=== PATIENT | female | born 1940 | race Caucasian/White ===

== ENCOUNTER → 2017-09-27 17:48 | Outpatient (CLI) | payer MEDICARE, SELFPAY ==
--- NOTE | 2017-09-27 17:57 | RAD_ITS ---
STUDY: X-RAY - THORACIC SPINE REASON FOR EXAM: Female, 77 years old. Back pain and headaches. TECHNIQUE: AP and lateral view(s) of the thoracic spine were obtained. COMPARISON: None. FINDINGS: Normal kyphosis of the thoracic spine. There is no substantial scoliosis. There is demineralization of the thoracic spine with endplate spondylosis. There is multilevel disc space narrowing of the thoracic spine. The soft tissue structures are unremarkable. RAD/Thoracic Spine 3 Views IMPRESSION: Multilevel disc space narrowing. Electronically Signed: Tico Fitzpatrick MD at 12:25 EST Tel [phone], Service support ,
--- NOTE | 2017-09-27 18:00 | RAD_ITS ---
STUDY: X-RAY - CERVICAL SPINE REASON FOR EXAM: Female, 77 years old. Headaches and neck pain. TECHNIQUE: 3 view(s) of the cervical spine were obtained. COMPARISON: None FINDINGS: Normal anterior atlantoaxial articulation. Normal odontoid process. There is straightening of the normal cervical lordosis. There is multi-level endplate spondylosis. There is multi-level degenerative disc disease with multilevel disc space narrowing. Facet joint osteoarthritis. There are atherosclerotic vascular calcifications of the carotid arteries. RAD/Cerv Spine 2 or 3 Views IMPRESSION: Multilevel spondylosis and disc space narrowing. Electronically Signed: Tico Fitzpatrick MD at 12:25 EST Tel [phone], Service support ,
== END ==
PROVIDERS: Family Provider Family Medicine Geriatric Medicine; PCP Family Medicine Geriatric Medicine; Visit Provider Family Medicine Geriatric Medicine
DX: M54.5 Low back pain (principal)
CPT/HCPCS: 72040; 72072

== ENCOUNTER → 2017-10-12 15:11 | Outpatient (CLI) | payer MEDICARE, SELFPAY ==
--- NOTE | 2017-10-12 15:17 | CT_ITS ---
STUDY: CT BRAIN WITHOUT CONTRAST REASON FOR EXAM: Female, 77 years old. HEADACHE RADIATION DOSAGE (If Supplied By Facility): CTDIvol = ( 44.99 ) mGy, DLP = ( 714.56 ) mGycm TECHNIQUE: Transaxial CT imaging of the brain was performed without administration of intravenous contrast material. COMPARISON: 10/09/2011 FINDINGS: Normal soft tissue structures. Normal calvarium. There are calcifications around the carotid artery. These are noted in the cavernous carotid arteries. There is mild cerebral atrophy with widening of the extra-axial spaces and ventricular dilatation. There are areas of decreased attenuation within the white matter tracts of the supratentorial brain, consistent with microvascular disease changes. Normal basal ganglia and thalami. Normal brainstem. There is mild cerebellar atrophy. There is no intracranial hemorrhage. There are no findings of an acute ischemic infarction. Normal visualized paranasal sinuses. CT/Brain/Head without Contrast IMPRESSION: Chronic involutional changes of the brain. There are no acute findings. Electronically Signed: Grey Lund MD at 16:15 EST , Service support ,
== END ==
PROVIDERS: Family Provider Family Medicine Geriatric Medicine; PCP Family Medicine Geriatric Medicine; Visit Provider Family Medicine Geriatric Medicine
DX: G44.009 Cluster headache syndrome, unspecified, not intractable (principal)
CPT/HCPCS: 70450

== ENCOUNTER → 2018-02-09 11:15 | Outpatient (CLI) | payer MEDICARE, SELFPAY ==
--- NOTE | 2018-02-09 11:34 | VDLE_ITS ---
Reason For Study: LEG SWELLING RIGHT LEFT GSV is normal. GSV is normal. CFV is compressible, spontaneous, phasic, CFV is compressible, spontaneous, phasic, competent and demonstrates normal competent, and demonstrates normal augmentation. augmentation. FV is compressible, spontaneous, phasic, FV is compressible, spontaneous, phasic, competent and demonstrates normal competent and demonstrates normal augmentation. augmentation. POP V is compressible, spontaneous, phasic, POP V is compressible, spontaneous, phasic, competent and demonstrates normal competent and demonstrates normal augmentation. augmentation. T/P Trunk is compressible. T/P Trunk is compressible. PTV is compressible. PTV is compressible. RT PerV is compressible. LT PerV is compressible. Procedure Exam performed in department. A preliminary report was called and/or faxed to Dr. Campuzano. Interpretation Summary Deep veins of the lower extremities are bilaterally patent and compressible segmentally. There is no evidence of deep vein thrombosis on either side. Valvular competence appears intact within the proximal deep venous systems bilaterally. The greater saphenous veins appear bilaterally patent and compressible segmentally. Ordering Physician: Tj Campuzano Performed By: Andria Roy RVT
[2018-02-09 12:13] LABS: Absolute Lymphocyte Count 0.91 X10^3/ul (0.83-4.51); Absolute Neutrophil Count 2.2 X10^3/uL (2.0-7.7); Basophil# 0.02 X10^3/uL; Basophil% 0.6 % (0-1); Eosinophil# 0.19 X10^3/uL; Eosinophils% 5.2 % (0-5); Hematocrit 36.3 % (37-47); Hemoglobin 11.6 g/dl (12.0-15.0); Lymphocyte # 0.91 X10^3/ul (4.0); Lymphocyte % 25.1 % (19-41); Mean Corpuscular Hgb 31.3 pg (27.0-32.0); Mean Corpuscular Volume 97.8 fL (81-99); Mean Platelet Vol. 9.8 fl (6.2-12.0); Monocyte# 0.34 X10^3/uL; Monocyte% 9.4 % (0-10); Neutrophil # 2.15 X10^3/uL (2.7-7.7); Neutrophil % 59.4 % (47-70); Platelet Count 180 K/mm3 (150-450); RBC Distribution Width CV 13.4 % (11.6-14.6); RBC Distribution Width SD 46.5 fl (35.1-43.9); Red Blood Count 3.71 M/mm3 (4.2-5.4); White Blood Count 3.6 K/mm3 (4.4-11.0)
[2018-02-09 12:41] LABS: POSITIVE COUNT NO; POSITIVE DIFFERENTIAL NO; POSITIVE MORPHOLOGY NO
[2018-02-09 12:48] LABS: AST(SGOT) 26 U/L (15-37); Alanine Aminotransfer ALT/SGPT 24 U/L (13-56); Albumin, Serum 3.3 g/dL (3.2-5.0); Alkaline Phosphatase 97 U/L (45-117); Anion Gap 8 (5-15); BUN 19 mg/dL (7-18); BUN/Creat Ratio 19.4 RATIO (10-20); Calcium,Total 8.6 mg/dL (8.5-10.1); Chloride 109 mmol/L (98-107); Creatinine, Serum 0.98 mg/dL (0.55-1.02); EST Glomerular Filtration Rate 58 mL/min (>60); Est Glom Filt Rate - Afr Amer 71 mL/min (>60); Globulin 3.4 g/dL (2.2-4.2); Glucose 91 mg/dL (74-106); Potassium 4.7 mmol/L (3.5-5.1); Protein, Total 6.7 g/dL (6.4-8.2); Sodium Level 144 mmol/L (136-145); Thyroid Stim Hormone (TSH) 3.61 uIU/mL (0.358-3.74); Vitamin D,25 Hydroxy 9.8 ng/mL (29.95-100.01)
== END ==
PROVIDERS: Family Provider Family Medicine Geriatric Medicine; PCP Family Medicine Geriatric Medicine; Visit Provider Family Medicine Geriatric Medicine
DX: R60.0 Localized edema (principal); E55.9 Vitamin D deficiency, unspecified; R53.83 Other fatigue
CPT/HCPCS: 36415; 80053; 82306; 84443; 85025; 93970

== ENCOUNTER → 2018-06-29 17:45 | Outpatient (CLI) | payer MEDICARE, SELFPAY ==
--- NOTE | 2018-06-29 18:05 | RAD_ITS ---
STUDY: X-RAY - PELVIS AND BILATERAL HIPS REASON FOR EXAM: Right hip pain, fall in October patellar fractures. TECHNIQUE: Radiological exam, hip, bilateral, with pelvis when performed; minimum of 5 views COMPARISON: Radiographs of the left hip 08/02/2014. FINDINGS: There are injection granulomas in the buttocks. Normal bilateral iliac wings, sacroiliac joints and visualized sacrum. There are fractures of the right obturator ring with callus formation. There are mild degenerative changes of the pubic symphysis. Normal bilateral ischial tuberosities. Normal visualized right femoral head. Normal right acetabulum. Normal right hip joint. Normal visualized left femoral head. Normal left acetabulum. Normal left hip joint. RAD/Hips B/L min 2 views w/ Pelvis IMPRESSION: Healing fractures of the right obturator ring. Mild degenerative changes of the pubic symphysis. Otherwise, unremarkable x-ray examination of the pelvis and bilateral hips. Electronically Signed: Kostas Croft MD at 10:42 EDT Tel , Service support ,
[2018-06-29 18:57] LABS: D-Dimer Quantitative (DVT/PE) 1.37 FEU/ug/m (0.27-0.49)
== END ==
PROVIDERS: Family Provider Family Medicine Geriatric Medicine; PCP Family Medicine Geriatric Medicine; Visit Provider Family Medicine Geriatric Medicine
DX: R06.02 Shortness of breath (principal); M25.559 Pain in unspecified hip; S32.9XXA Fracture of unspecified parts of lumbosacral spine and pelvis, initial encounter for closed fracture
CPT/HCPCS: 36415; 73521; 85379

== ENCOUNTER → 2018-06-30 13:53 | Outpatient (CLI) | payer MEDICARE, SELFPAY ==
--- NOTE | 2018-06-30 14:01 | VDLE_ITS ---
Reason For Study: edema RIGHT LEFT GSV is normal. GSV is normal. CFV is compressible, spontaneous, phasic, CFV is compressible, spontaneous, phasic, competent and demonstrates normal competent, and demonstrates normal augmentation. augmentation. FV is compressible, spontaneous, phasic, FV is compressible, spontaneous, phasic, competent and demonstrates normal competent and demonstrates normal augmentation. augmentation. POP V is compressible, spontaneous, phasic, POP V is compressible, spontaneous, phasic, competent and demonstrates normal competent and demonstrates normal augmentation. augmentation. T/P Trunk is compressible. T/P Trunk is compressible. PTV is compressible. PTV is compressible. RT PerV is compressible. LT PerV is compressible. Procedure Exam performed in department. The exam was diagnostic. A preliminary report was called and/or faxed to Dr. Campuzano. <> Interpretation Summary Deep veins of the lower extremities are bilaterally patent and compressible segmentally. There is no evidence of deep vein thrombosis on either side. Valvular competence appears intact within the proximal deep venous systems bilaterally. The greater saphenous veins appear bilaterally patent and compressible segmentally. Ordering Physician: Tj Campuzano Performed By: Michael Rucker RVT
== END ==
PROVIDERS: Family Provider Family Medicine Geriatric Medicine; PCP Family Medicine Geriatric Medicine; Referring Provider Family Medicine Geriatric Medicine; Visit Provider Family Medicine Geriatric Medicine
DX: R60.0 Localized edema (principal)
CPT/HCPCS: 93970

== ENCOUNTER → 2018-08-05 09:47 | Outpatient (CLI) | payer MEDICARE, SELFPAY ==
--- NOTE | 2018-08-05 09:50 | BI_ITS ---
MAMMOGRAPHY - BILATERAL SCREENING REASON FOR EXAM: Female, 77 years old. Routine annual screening examination. PERTINENT HISTORY: Personal history of breast cancer. Prior right lumpectomy with radiation therapy. TECHNIQUE: Digital bilateral breast marguerite (3D mammographic acquisition) in the CC and MLO projections. 2-D mediolateral oblique (MLO) and craniocaudad (CC) views of both breasts were obtained. CAD: Full Field Digital Mammography with Computer Added Detection was performed. COMPARISON: Comparison is made with prior study dated August 04, 2017 and February 04, 2016. FINDINGS: Breast Composition: There are scattered areas of fibroglandular density. There are no dominant masses or suspicious calcifications. Stable postoperative changes seen in the deep central portion of the right breast due to prior lumpectomy and radiation treatment. Stable bilateral secretory calcifications. No other significant abnormalities are identified. There has been no significant change since the prior study. BI/SCREENING MAMM (CAD), BILAT IMPRESSION: Stable bilateral screening mammogram. Yearly follow-up mammogram recommended. (A) ASSESSMENT CATEGORY: BIRADS Category 2: Benign. A letter regarding these results will be sent to the patient by the facility within 30 days. Approximately 10% of breast cancers are not detected by mammography. A normal mammogram should not delay biopsy of a clinically suspicious abnormality. [id number] Electronically Signed: Tico Fitzpatrick MD at 10:59 EST Tel [phone], Service support ,
== END ==
PROVIDERS: Family Provider Family Medicine Geriatric Medicine; PCP Family Medicine Geriatric Medicine; Referring Provider Internal Medicine Medical Oncology; Visit Provider Internal Medicine Medical Oncology
DX: Z12.31 Encounter for screening mammogram for malignant neoplasm of breast (principal); Z85.3 Personal history of malignant neoplasm of breast
CPT/HCPCS: 77063; 77067

== ENCOUNTER → 2018-08-10 13:17 | Outpatient (CLI) | payer MEDICARE, SELFPAY ==
[2018-08-10 15:58] LABS: Absolute Lymphocyte Count 0.79 X10^3/ul (0.83-4.51); Basophil# 0.04 X10^3/uL; Basophil% 1.2 % (0-1); Eosinophil# 0.18 X10^3/uL; Eosinophils% 5.3 % (0-5); Hematocrit 39.5 % (37-47); Hemoglobin 12.5 g/dl (12.0-15.0); Lymphocyte # 0.79 X10^3/ul (4.0); Lymphocyte % 23.2 % (19-41); Mean Corp Hgb Conc 31.6 g/gl (32-36); Mean Corpuscular Hgb 29.5 pg (27.0-32.0); Mean Corpuscular Volume 93.2 fL (81-99); Mean Platelet Vol. 10.8 fl (6.2-12.0); Monocyte# 0.37 X10^3/uL; Monocyte% 10.9 % (0-10); Neutrophil # 2.02 X10^3/uL (2.7-7.7); Neutrophil % 59.4 % (47-70); Platelet Count 167 K/mm3 (150-450); RBC Distribution Width CV 14.6 % (11.6-14.6); RBC Distribution Width SD 49.7 fl (35.1-43.9); Red Blood Count 4.24 M/mm3 (4.2-5.4); White Blood Count 3.4 K/mm3 (4.4-11.0)
[2018-08-10 16:15] LABS: POSITIVE COUNT NO; POSITIVE DIFFERENTIAL NO; POSITIVE MORPHOLOGY NO
[2018-08-10 16:18] LABS: Vitamin D,25 Hydroxy 37.6 ng/mL (29.95-100.01)
[2018-08-10 16:42] LABS: AST(SGOT) 21 U/L (15-37); Alanine Aminotransfer ALT/SGPT 19 U/L (13-56); Albumin, Serum 3.6 g/dL (3.2-5.0); Alkaline Phosphatase 76 U/L (45-117); Anion Gap 4 (5-15); BUN 26 mg/dL (7-18); BUN/Creat Ratio 23.4 RATIO (10-20); Calcium,Total 8.9 mg/dL (8.5-10.1); Chloride 109 mmol/L (98-107); Creatinine, Serum 1.11 mg/dL (0.55-1.02); EST Glomerular Filtration Rate 51 mL/min (>60); Est Glom Filt Rate - Afr Amer 61 mL/min (>60); Globulin 3.5 g/dL (2.2-4.2); Glucose 102 mg/dL (74-106); Potassium 4.8 mmol/L (3.5-5.1); Protein, Total 7.1 g/dL (6.4-8.2); Sodium Level 140 mmol/L (136-145); Thyroid Stim Hormone (TSH) 3.09 uIU/mL (0.358-3.74)
--- OUTSIDE RECORDS SUMMARY | 2018-09-26 17:14 | XMS RPT_ITS ---
:1940 Author Organization OHIP Support Name Relationship Address Phone AMSTUTZ, SUMIT Unavailable . + ., . . JAIDA RAYO Unavailable . + ., . . R Unavailable Unavailable Unavailable AMSTUTZ, SUMIT Unavailable . + ., . . JAIDA RAYO Unavailable . + ., . . R Unavailable Unavailable Unavailable AMSTUTZ, SUMIT Unavailable . + ., . . JAIDA RAYO Unavailable . + ., . . R Unavailable Unavailable Unavailable AMSTUTZ, SUMIT Unavailable . + ., . . JAIDA RAYO Unavailable . + ., . . R Unavailable Unavailable Unavailable AMSTUTZ, SUMIT Unavailable . + ., . . JAIDA RAYO Unavailable . + ., . . R Unavailable Unavailable Unavailable AMSTUTZ, SUMIT Unavailable Unavailable + R Unavailable Unavailable Unavailable AMSTUTZ, SUMIT Unavailable Unavailable + R Unavailable Unavailable Unavailable AMSTUTZ, SUMIT Unavailable [address] + [place] [address] R Unavailable Unavailable Unavailable AMSTUTZ, SUMIT Unavailable [address] + [place] [address] R Unavailable Unavailable Unavailable AMSTUTZ, SUMIT Unavailable [address] [phone]~330-2 [place] [address] R Unavailable Unavailable Unavailable AMSTUTZ, SUMIT Unavailable [address] [phone] [place] [address] R Unavailable Unavailable Unavailable AMSTUTZ, SUMIT Unavailable [address] [phone] [place] [address] R Unavailable Unavailable Unavailable AMSTUTZ, SUMIT Unavailable [address] [phone] [place] [address] R Unavailable Unavailable Unavailable AMSTUTZ, SUMIT Unavailable [address] [phone] [place] [address] R Unavailable Unavailable Unavailable Care Team Providers Name Role Phone FRANKIE MCCALL, ORACIO Rosenthal JR. Attending Unavailable MILAN HOLLIDAY, GOGO-CHI Primary Care Unavailable Milan, Gogo Chi Attending Unavailable Milan, Gogo Chi Primary Care Unavailable DossieRomana D.C. Attending Unavailable Milan, Gogo Chi Referring Unavailable DossieRomana D.C. Attending Unavailable Milan, Gogo Chi Primary Care Unavailable DossieRomana D.C. Attending Unavailable Milan, Gogo Chi Referring Unavailable DossieRomana D.C. Attending Unavailable Milan, Gogo Chi Referring Unavailable DossieRomana D.C. Attending Unavailable DossieRomana D.C. Referring Unavailable Milan, Gogo Chi Attending Unavailable Milan, Gogo Chi Primary Care Unavailable Milan, Gogo Chi Attending Unavailable Milan, Gogo Chi Referring Unavailable Milan, Gogo Chi Primary Care Unavailable Rigo Landers Attending Unavailable Rigo Landers Referring Unavailable Milan, Gogo Chi Primary Care Unavailable Rigo Landers Attending Unavailable Milan, Gogo Chi Primary Care Unavailable Rigo Landers Consulting Unavailable Milan, Gogo Chi Attending Unavailable Milan, Gogo Chi Primary Care Unavailable Milan, Gogo Chi Attending Unavailable Milan, Gogo Chi Primary Care Unavailable Milan, Gogo Chi Attending Unavailable Milan, Gogo Chi Referring Unavailable Milan, Gogo Chi Primary Care Unavailable Rigo Landers Attending Unavailable Rigo Landers Referring Unavailable Milan, Gogo Chi Primary Care Unavailable PROBLEMS PROBLEMS DATE TYPE CONDITION / CODE ATTENDING STATUS SOURCE 09/20/2018 Unknown M99.03 - Segmental Dossie, Romana Active [facility] dysfunction of Hospital lumbar region / Repository M99.03(ICD-10) 09/20/2018 Unknown M51.36 - Other Dossie, Romana Active [place] intervertebral disc [facility] Community degeneration, lumbar Hospital region / Repository M51.36(ICD-10) 09/20/2018 Unknown M99.05 - Segmental Dossie, Romana Active [place] [facility] Community dysfunction of Hospital pelvic region / Repository M99.05(ICD-10) 09/20/2018 Unknown M99.02 - Segmental Dossie, Romana Active [place] [facility] 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 Age/Sex: 78/F Location: [facility] Status: Signed Intake Vital Signs09/19/18 Body Mass Index (BMI) 24.4 09/19/18 Height 5 ft 5 in 09/19/18 Weight: 147 lb 09/19/18 Body Mass Index (BMI) 24.4 Intake Visit Reasons: back pain Chief Complaint: R sided low back pain Is patient in pain?: Yes Allergies No Known Allergies Allergy (Verified 05/22/17 13:56) Medications Atorvastatin Calcium [Lipitor] 10 mg PO QHS 01/20/17 [History Confirmed 05/22/17] Glucosam/Chondroitin/Diet Cb25 [Trepadone Capsule] 1 ea PO TID 02/09/17 [History Confirmed 05/22/17] Potassium Chloride [K-Dur] 20 meq PO BID 02/12/17 [History Confirmed 05/22/17] Docusate Sodium [Colace] 100 mg PO DAILY #20 cap 05/22/17 [Rx] Oxycodone HCl/Acetaminophen [Percocet 5/325] 1 tab PO Q6H PRN PRN #20 tab 05/22/17 [Rx] Paroxetine [Paxil] 5 mg PO DAILY 05/22/17 [History Confirmed 05/22/17] Sumatriptan Succinate 50 mg PO QHS PRN 05/22/17 [History Confirmed 05/22/17] Black Cohosh 40 mg PO DAILY 10/20/17 [History Confirmed 10/20/17] [facility] Medical History Depression (Acute) History of DVT (deep vein thrombosis) (Acute) History of fracture of right hip (Acute) Migraine (Acute) Osteopenia (Acute) Vitamin D deficiency (Acute) Family History Father Colon cancer Social History Smoking Status: Never smoker HPI back pain: Chief Complaint: R sided low back pain and hip pain Visit Number: 3 Details: MARYANNE MATAMOROS is a 78 year old F who presents with R sided low back and hip pain. She states that after her last treatment her pain was decreased for a few hours following her treatment. Today Maryanne rates her pain a 4/10 and describes it as a deep and sharp ache that is constant. Rotation of the back, bending,twisting, and prolonged sitting causes increased pain. At times the pain can radiate into the upper thigh and hip . Maryanne denies any numbness, tingling, or radiculopathy. Location: R sided low back and hip Duration: constant Aggravating or associated factors: rotation, bending, lifting, and twisting Relieving factors: chiro Pain Quality: aching, dull, cramping, sharp Exam Musc General: Yes normal posture and joint tenderness (T11,T12,L2- L5, R>L SI); no normal gait (slightly favors R leg) Thoracic/Lumbar Spine: thoracic and lumbar spine normal to inspection, straight leg raise negative bilaterally, Lasegue's sign positive, pain with thoraco- lumbar ROM, paraspinal tenderness, thoraco-lumbar ROM limited, thoraco-lumbar spasm Sacroiliac joints: bilaterally Office Procedures Chiropractic Treatments Procedures Manipulation: 3-4 regions (T11,L2,L5, RIL) Assessment AND Plan 1. DDD (degenerative disc disease), lumbar M51.36 Orders Orders: 2. Segmental and somatic dysfunction of pelvic region M99.05 Orders Orders: 3. Segmental and somatic dysfunction of thoracic region M99.02 Orders Orders: 4. Segmental and somatic dysfunction of lumbar region M99.03 Orders Orders: Plan Detail Additional Comments Continue acute treatment plan. Goals Decrease pain Improve ability to sit/stand Barriers DDD Anterolisthesis Follow Up 2 x week Coding Level of Care Code No Charge Diagnoses DDD (degenerative disc disease), lumbar M51.36 Segmental and somatic dysfunction of pelvic region M99.05 Segmental and somatic dysfunction of thoracic region M99.02 Segmental and somatic dysfunction of lumbar region M99.03 Additional Codes Procedures - Manipulation: 3-4 regions (80966) 09/19/18 1532 <Electronically signed by Romana Deshpande D.C.> Date Romana Deshpande D.C. Cosigner Signature: Date (if applicable) CC: CHIROPRACTIC REPORT Observed: 09/19/2018 Status: F Source: [place] 9:27 AM [facility] [place] [facility] [address] [place] [address] OFFICE VISIT Date of Service: 09/15/18 MR#: [id number] Acct: [id number] Name: MARYANNE MATAMOROS Chen Rep #: [id number] : 1940 Provider: Romana Deshpande D.C. Age/Sex: 78/F Location: [facility] Status: Signed Intake Vital Signs09/15/18 Height 5 ft 5 in 09/15/18 Weight: 147 lb 09/15/18 Body Mass Index (BMI) 24.4 Intake Visit Reasons: back pain Chief Complaint: R sided low back pain Is patient in pain?: Yes Allergies No Known Allergies Allergy (Verified 05/22/17 13:56) Medications Atorvastatin Calcium [Lipitor] 10 mg PO QHS 01/20/17 [History Confirmed 05/22/17] Glucosam/Chondroitin/Diet Cb25 [Trepadone Capsule] 1 ea PO TID 02/09/17 [History Confirmed 05/22/17] Potassium Chloride [K-Dur] 20 meq PO BID 02/12/17 [History Confirmed 05/22/17] Docusate Sodium [Colace] 100 mg PO DAILY #20 cap 05/22/17 [Rx] Oxycodone HCl/Acetaminophen [Percocet 5/325] 1 tab PO Q6H PRN PRN #20 tab 05/22/17 [Rx] Paroxetine [Paxil] 5 mg PO DAILY 05/22/17 [History Confirmed 05/22/17] Sumatriptan Succinate 50 mg PO QHS PRN 05/22/17 [History Confirmed 05/22/17] Black Cohosh 40 mg PO DAILY 10/20/17 [History Confirmed 10/20/17] [facility] Medical History Depression (Acute) History of DVT (deep vein thrombosis) (Acute) History of fracture of right hip (Acute) Migraine (Acute) Osteopenia (Acute) Vitamin D deficiency (Acute) Family History Father Colon cancer Social History Smoking Status: Never smoker HPI back pain : Chief Complaint: R sided low back and hip pain Visit Number: 2 Details: MARYANNE MATAMOROS is a 78 year old F who presents with R sided low back and hip pain. She states that her pain is persistent, leaving her with a deep and sharp ache banding across the R side of the low back, and into the leg. Today Maryanne rates her pain 4/10 and describes it as a deep and sore ache that become sharp shooting with movement. Rotation, walking, bending and walking up stairs causes the pain to increase. Maryanne denies any numbness or tingling. Location: R low back and hip pain Duration: constant Aggravating or associated factors: rotation, standing, walking, and going up stairs Relieving factors: unknown Pain Quality: aching, dull, cramping, sharp, radiating Exam Musc General: Yes normal posture and joint tenderness (T11,T12,L2- L5, R>L SI); no normal gait (slightly favors R leg) Thoracic/Lumbar Spine: thoracic and lumbar spine normal to inspection, straight leg raise negative bilaterally, Lasegue's sign positive, pain with thoraco- lumbar ROM, paraspinal tenderness, thoraco-lumbar ROM limited, thoraco-lumbar spasm Sacroiliac joints: bilaterally Office Procedures Chiropractic Treatments Procedures Manipulation: 3-4 regions (T11,L2,L5, RIL) Assessment AND Plan 1. DDD (degenerative disc disease), lumbar M51.36 Orders Orders: 2. Segmental and somatic dysfunction of thoracic region M99.02 Orders Orders: 3. Segmental and somatic dysfunction of pelvic region M99.05 Orders Orders: 4. Segmental and somatic dysfunction of lumbar region M99.03 Orders Orders: Plan Detail Additional Comments Begin acute treatment plan and monitor patient response. Goals Decrease pain Improve ability to sit/stand Barriers DDD Anterolisthesis Follow Up 2 x week Coding Level of Care Code No Charge Diagnoses DDD (degenerative disc disease), lumbar M51.36 Segmental and somatic dysfunction of thoracic region M99.02 Segmental and somatic dysfunction of pelvic region M99.05 Segmental and somatic dysfunction of lumbar region M99.03 Additional Codes Procedures - Manipulation: 3-4 regions (58784) 09/19/18 0927 <Electronically signed by Romana Deshpande D.C.> Date Romana Deshpande D.C. Cosigner Signature: Date (if applicable) CC: CHIROPRACTIC REPORT Observed: 09/12/2018 Status: F Source: [place] 1:13 PM [facility] [place] [facility] [place] [address] OFFICE VISIT Date of Service: 09/12/18 MR#: [id number] Acct: [id number] Name: MARYANNE MATAMOROS Rep #: [id number] : 1940 Provider: Romana Deshpande D.C. Age/Sex: 77/F Location: [facility] Status: Signed Intake Vital Signs09/12/18 Height 5 ft 5 in 09/12/18 Weight: 147 lb 09/12/18 Body Mass Index (BMI) 24.4 Intake Visit Reasons: back pain Chief Complaint: R hip and low back pain Is patient in pain?: Yes Allergies No Known Allergies Allergy (Verified 05/22/17 13:56) Medications Atorvastatin Calcium [Lipitor] 10 mg PO QHS 01/20/17 [History Confirmed 05/22/17] Glucosam/Chondroitin/Diet Cb25 [Trepadone Capsule] 1 ea PO TID 02/09/17 [History Confirmed 05/22/17] Potassium Chloride [K-Dur] 20 meq PO BID 02/12/17 [History Confirmed 05/22/17] Docusate Sodium [Colace] 100 mg PO DAILY #20 cap 05/22/17 [Rx] Oxycodone HCl/Acetaminophen [Percocet 5/325] 1 tab PO Q6H PRN PRN #20 tab 05/22/17 [Rx] Paroxetine [Paxil] 5 mg PO DAILY 05/22/17 [History Confirmed 05/22/17] Sumatriptan Succinate 50 mg PO QHS PRN 05/22/17 [History Confirmed 05/22/17] Black Cohosh 40 mg PO DAILY 10/20/17 [History Confirmed 10/20/17] [facility] Medical History Depression (Acute) History of DVT (deep vein thrombosis) (Acute) History of fracture of right hip (Acute) Migraine (Acute) Osteopenia (Acute) Vitamin D deficiency (Acute) Family History Father Colon cancer Social History Smoking Status: Never smoker HPI back pain : Chief Complaint: low back and R hip pain Visit Number: 1 Referral source: Details: MARYANNE MATAMOROS is a 77 year old F who presents with low back and R hip pain. In October of 2017, the patient fell fracturing two bones in the R hip, this did not require surgery. Maryanne states that prior to the fall her low back was painful, although did increase after the fall. Maryanne describes her low back pain as a deep and sore ache that bands across the low back. Walking, standing and sitting for a long period of time causes increased pain. The patient complains of pain still present in the R hip, at times there is pain into the R groin, and upper thigh. As of May the hip was not yet heeled. Maryanne denies any numbness, or tingling, Onset: 09/13/17 Location: R hip and low back Duration: constant Aggravating or associated factors: rising from bed, standing, walking and bending Relieving factors: unknown Pain Quality: aching, dull, cramping, sharp, radiating Exam Musc General: Yes normal posture and joint tenderness (L2-L5, R>L SI); no normal gait (slightly favors R leg) Thoracic/Lumbar Spine: thoracic and lumbar spine normal to inspection, straight leg raise negative bilaterally, Lasegue's sign positive on the right, pain with thoraco-lumbar ROM other, with rotation to the right and with lateral flexion to the right, paraspinal tenderness bilaterally in the lower lumbar, in the mid lumbar and in the upper lumbar and on the right greater than left (piriformis, glute), thoraco-lumbar ROM limited with forward flexion, with rotation to the right and with lateral flexion to the right, thoraco-lumbar spasm on the right greater than left (R piriformis) Sacroiliac joints: bilaterally Neuro General: alert, awake, oriented x3, gait normal, normal light touch, pain and propioception, moves all extremities, no focal motor deficits Ortho Test CERVICAL THORACIC Miller: Negative LUMBAR Kemps: Positive, Rig Valsalvas: Negative SLR: Negative Iliac Compression: Positive, Rig Assessment AND Plan Problems 1. Segmental and somatic dysfunction of lumbar region M99.03 2. Segmental and somatic dysfunction of thoracic region M99.02 3. Segmental and somatic dysfunction of pelvic region M99.05 4. DDD (degenerative disc disease), lumbar M51.36 Plan Reviewed previous lumbar imaging which revealed DDD and anterolisthesis of L5 on S1(degenerative). Ordered updated hip imaging as of 06/29/18 the fx was not healed. Orders Orders: Plan Detail Additional Comments Recommend acute treatment plan(confirm fx healed) of 2x/wk/3wks. Monitor patient response. Goals Decrease pain Improve ability to sit/stand Barriers DDD Anterolisthesis Follow Up 2x/wk/3wks Coding Level of Care Code Off vis,new,level 3 Diagnoses Segmental and somatic dysfunction of lumbar region M99.03 Segmental and somatic dysfunction of thoracic region M99.02 Segmental and somatic dysfunction of pelvic region M99.05 DDD (degenerative disc disease), lumbar M51.36 09/12/18 1313 <Electronically signed by Romana Deshpande D.C.> Date Romana Deshpande D.C. Cosigner Signature: Date (if applicable) CC: CBC W/DIFF, AUTOMATED Collected: 08/10/2018 Status: F Source: [place] 1:[facility] [place] [facility] [place] TYPE CODE TESTS RESULT OUT OF RANGE REFERENCE UNITS LAB L100.1000 4.4-11.0 K/mm3 Low WBC 3.4 LAB L100.1200 4.2-5.4 M/mm3 Normal RBC 4.24 LAB L100.1300 12.0-15.0 g/dl Normal HGB 12.5 LAB L100.1400 37-47 % Normal HCT 39.5 LAB L100.1500 81-99 fL Normal MCV 93.2 LAB L100.1600 27.0-32.0 pg Normal MCH 29.5 LAB L100.1700 32-36 g/gl Low MCHC 31.6 LAB L100.1810 11.6-14.6 % Normal RDW CV 14.6 LAB L100.1820 35.1-43.9 fl High RDW SD 49.7 LAB L100.1900 150-450 K/mm3 Normal PLT 167 LAB L100.2000 6.2-12.0 fl Normal MPV 10.8 LAB L100.2100 47-70 % Normal NEUT% 59.4 LAB L100.2200 19-41 % Normal LY% 23.2 LAB L100.2300 0-10 % High MONO% 10.9 LAB L100.2400 0-5 % High EO% 5.3 LAB L100.2500 0-1 % High BASO% 1.2 LAB L100.2550 0.0-0.9 % Normal IM GRAN % 0.000 Result Comment: IG% - Immature Granulocytes (promyelocytes, myelocytes and metamyelocytes) > 1% indicates that a LEFT SHIFT is Present. LAB L100.2620 2.0-7.7 X10 3/uL Normal Absolute Neut 2.0 LAB L100.2720 0.83-4.51 X10 3/ul Low Absolute Lymph 0.79 Performed By: #### L100.0100 #### [facility] [address] [place], [place], [address] VITAMIN D,25 HYDROXY Collected: 08/10/2018 Status: F Source: [place] 1:19 PM [facility] [place] TYPE CODE TESTS RESULT OUT OF RANGE REFERENCE UNITS LAB L506.1000 29.95-100.01 ng/mL Normal Vitamin D 37.6 25-OH Result Comment: Vitamin D 25(OH) Status Range Deficiency <20 ng/mL (50nmol/L) Insuffciency 20 - 30 ng/mL (50 - 75 nmol/L) Sufficiency 30 - 100 ng/mL (75 - 250 nmol/L) Toxicity >100 ng/mL (>250 nmol/L) Performed By: #### L506.1000 #### [facility] [address] [place], [place], [address] COMPREHENSIVE METABOLIC Collected: 08/10/2018 Status: F Source: [facility] 1:19 PM [facility] [place] TYPE CODE TESTS RESULT OUT OF RANGE REFERENCE UNITS LAB L501.0100 74-106 mg/dL Normal GLU 102 Result Comment: Fasting Glucose result from 100 to 125 mg/dL suggests IMPAIRED HOMEOSTASIS per A.D.A. criteria. Please note revised GLUCOSE reference range effective 2017. LAB L501.1000 7-18 mg/dL High BUN 26 LAB L501.1100 0.55-1.02 mg/dL High CREAT,SERUM 1.11 Result Comment: The validity of the calculated GFR AND GFRAA in patients over 70 years has not been determined. Clinical correlation is essential. LAB L501.1110 >60 mL/min Low EST GFR 51 Result Comment: Non- GFR Calc LAB L501.1115 >60 mL/min Normal EST GFR - AA 61 Result Comment: GFR Calc LAB L501.1300 10-20 RATIO High BUN/CRE 23.4 LAB L501.1500 6.4-8.2 g/dL T Normal PROT 7.1 LAB L501.1800 3.2-5.0 g/dL Normal ALB 3.6 LAB L501.1950 2.2-4.2 g/dL Normal GLOB 3.5 LAB L501.2000 0.9-2.4 RATIO Normal A/G 1.0 LAB L501.2200 8.5-10.1 mg/dL CA Normal 8.9 LAB L501.4100 15-37 U/L Normal AST 21 LAB L501.4305 45-117 U/L Normal ALK P 76 LAB L501.4405 13-56 U/L Normal ALT 19 LAB L501.4600 0.20-1.00 mg/dL T Normal BILI 0.40 LAB L501.5300 136-145 mmol/L NA Normal 140 LAB L501.5600 3.5-5.1 mmol/L K Normal 4.8 LAB L501.5900 98-107 mmol/L High CL 109 LAB L501.6100 21.0-32.0 mmol/L Normal CO2 27.0 LAB L501.6200 5-15 Low GAP 4 Performed By: #### L500.4050, L501.9520 #### [facility] [address] [place], [place], [id number] THYROID STIM HORMONE Collected: 08/10/2018 Status: F Source: [place] ([facility]) 1:19 PM [facility] [place] TYPE CODE TESTS RESULT OUT OF RANGE REFERENCE UNITS LAB L501.9520 0.358-3.74 uIU/mL Normal TSH 3.09 Performed By: #### L500.4050, L501.9520 #### [facility] [address] [place], [address] SCREENING MAMM (CAD), Observed: 08/05/2018 Status: F Source: [place] 9:50 AM [facility] [place] Imaging Services [address] [place] [address] SCREENING MAMM (CAD), BILAT MR#: [id number] Acct: [id number] Name: MARYANNE MATAMOROS Rep #: [id number] : 1940 F 77 From: Tico Fitzpatrick MD PCP: [place] MCCALL,Gogo Rodrigues Status: REG CLI Study: SCREENING MAMM (CAD), BILAT Date of Exam: 08/05/18 Exam# [id number] Ordering Dr: Rigo Landers MD MAMMOGRAPHY - BILATERAL SCREENING REASON FOR EXAM: Female, 77 years old. Routine annual screening examination. PERTINENT HISTORY: Personal history of breast cancer. Prior right lumpectomy with radiation therapy. TECHNIQUE: Digital bilateral breast marguerite (3D mammographic acquisition) in the CC and MLO projections. 2-D mediolateral oblique (MLO) and craniocaudad (CC) views of both breasts were obtained. CAD: Full Field Digital Mammography with Computer Added Detection was performed. COMPARISON: Comparison is made with prior study dated August 04, 2017 and February 04, 2016. FINDINGS: Breast Composition: There are scattered areas of fibroglandular density. There are no dominant masses or suspicious calcifications. Stable postoperative changes seen in the deep central portion of the right breast due to prior lumpectomy and radiation treatment. Stable bilateral secretory calcifications. No other significant abnormalities are identified. There has been no significant change since the prior study. BI/SCREENING MAMM (CAD), BILAT IMPRESSION: Stable bilateral screening mammogram. Yearly follow-up mammogram recommended. (A) ASSESSMENT CATEGORY: BIRADS Category 2: Benign. A letter regarding these results will be sent to the patient by the facility within 30 days. Approximately 10% of breast cancers are not detected by mammography. A normal mammogram should not delay biopsy of a clinically suspicious abnormality. [id number] Electronically Signed: Tico Fitzpatrick MD at 10:59 EST Tel [phone], Service support , CC: Rigo Landers MD; Gogo Yates MD Warm In Worker: Signed VENOUS DUPLEX LOWER Observed: 07/01/2018 Status: F Source: [place] EX[place]REM[place] 7:42 AM [facility] [place] [facility] Cardiovascular Services [address] [place] [id number] Venous Duplex US - Shoaib Extrem 06/30/18 1406 MR#: [id number] Acct: [id number] Name: MARYANNE MATAMOROS Rep #: [id number] : 1940 77 From: Tito Robles MD Attending Dr: [place] MCCALL,Gogo Rodrigues Status: REG CLI Ordering Dr: Gogo Yates MD Date: 06/30/18 Location: [facility] Sex: F C Admitted: Reason For Study: edema RIGHT LEFT GSV is normal. GSV is normal. CFV is compressible, spontaneous, phasic, CFV is compressible, spontaneous, phasic, competent and demonstrates normal competent, and demonstrates normal augmentation. augmentation. FV is compressible, spontaneous, phasic, FV is compressible, spontaneous, phasic, competent and demonstrates normal competent and demonstrates normal augmentation. augmentation. POP V is compressible, spontaneous, phasic, POP V is compressible, spontaneous, phasic, competent and demonstrates normal competent and demonstrates normal augmentation. augmentation. T/P Trunk is compressible. T/P Trunk is compressible. PTV is compressible. PTV is compressible. RT PerV is compressible. LT PerV is compressible. Procedure Exam performed in department. The exam was diagnostic. A preliminary report was called and/or faxed to Dr. Yates. <> Interpretation Summary Deep veins of the lower extremities are bilaterally patent and compressible segmentally. There is no evidence of deep vein thrombosis on either side. Valvular competence appears intact within the proximal deep venous systems bilaterally. The greater saphenous veins appear bilaterally patent and compressible segmentally. Ordering Physician: Gogo Yates Performed By: Michael Rukcer, RVT 07/01/18740 Date Tito Robles MD CC: Gogo Yates MD Date Dictated: 06/30/18 1406 Date Transcribed: 07/01/18740 Warm In Worker: Signed D-DIMER QUANTITATIVE Collected: 06/29/2018 Status: F Source: [place] (DVT/PE) 6:18 PM [facility] [place] CODE TESTS RESULT OUT OF RANGE REFERENCE UNITS LAB L300.8000 0.27-0.49 FEU/ug/m High alert D-DIMER 1.37 QUANT Result Comment: D-Dimer ELEVATED (>0.49): Additional studies and clinical assessments are indicated to conclude diagnosis of: Deep Vein Thrombosis (DVT) or Pulmonary Embolism (PE) CRITICAL VALUE VERIFIED. CALLED TO DR YATES 06/29/18 [facility]7 Karolina Roldan. RESULTS READ BACK BY SAME . Performed By: #### L300.8000 #### [facility] [address] [place], [address] HIPS B/L MIN 2 Observed: 06/29/2018 Status: F Source: [place] VIEWS W/ PELVIS 6:01 PM [facility] [place] [facility] Imaging Services [address] [place] [address] Hips B/L min 2 views w/ Pelvis MR#: [id number] Acct: [id number] Name: MARYANNE MATAMOROS Rep #: [id number] : 1940 F 77 From: Kostas Croft MD PCP: Gogo Yates MD, Chi Status: REG CLI Study: Hips B/L min 2 views w/ Pelvis Date of Exam: 06/29/18 Exam# [id number] Ordering Dr: Gogo Yates MD STUDY: X-RAY - PELVIS AND BILATERAL HIPS REASON FOR EXAM: Right hip pain, fall in October patellar fractures. TECHNIQUE: Radiological exam, hip, bilateral, with pelvis when performed; minimum of 5 views COMPARISON: Radiographs of the left hip 08/02/2014. FINDINGS: There are injection granulomas in the buttocks. Normal bilateral iliac wings, sacroiliac joints and visualized sacrum. There are fractures of the right obturator ring with callus formation. There are mild degenerative changes of the pubic symphysis. Normal bilateral ischial tuberosities. Normal visualized right femoral head. Normal right acetabulum. Normal right hip joint. Normal visualized left femoral head. Normal left acetabulum. Normal left hip joint. RAD/Hips B/L min 2 views w/ Pelvis IMPRESSION: Healing fractures of the right obturator ring. Mild degenerative changes of the pubic symphysis. Otherwise, unremarkable x-ray examination of the pelvis and bilateral hips. Electronically Signed: Kostas Croft MD at 10:42 EDT Tel , Service support , CC: Gogo Yates MD Warm In Worker: Signed VENOUS DUPLEX LOWER Observed: 02/09/2018 Status: F Source: [place] EXTREMITY 1:59 PM [facility] [place] [facility] Cardiovascular Services [address] [place] [address] Venous Duplex US - Shoaib Extrem 02/09/18 1134 MR#: [id number] Acct: [id number] Name: MARYANNE MATAMOROS Rep #: [id number] : 1940 77 From: Tito Robles MD Attending Dr: Milan MCCALL,Gogo Rodrigues Status: REG CLI Ordering Dr: Gogo Yates MD Date: 02/09/18 Location: CVS Sex: F C Admitted: Reason For Study: LEG SWELLING RIGHT LEFT GSV is normal. GSV is normal. CFV is compressible, spontaneous, phasic, CFV is compressible, spontaneous, phasic, competent and demonstrates normal competent, and demonstrates normal augmentation. augmentation. FV is compressible, spontaneous, phasic, FV is compressible, spontaneous, phasic, competent and demonstrates normal competent and demonstrates normal augmentation. augmentation. POP V is compressible, spontaneous, phasic, POP V is compressible, spontaneous, phasic, competent and demonstrates normal competent and demonstrates normal augmentation. augmentation. T/P Trunk is compressible. T/P Trunk is compressible. PTV is compressible. PTV is compressible. RT PerV is compressible. LT PerV is compressible. Procedure Exam performed in department. A preliminary report was called and/or faxed to Dr. Yates. Interpretation Summary Deep veins of the lower extremities are bilaterally patent and compressible segmentally. There is no evidence of deep vein thrombosis on either side. Valvular competence appears intact within the proximal deep venous systems bilaterally. The greater saphenous veins appear bilaterally patent and compressible segmentally. Ordering Physician: Gogo Yates Performed By: Andria Roy RVT 02/09/18 1358 Date Tito Robles MD CC: Gogo Yates MD Date Dictated: 02/09/18 1134 Date Transcribed: 02/09/18 1358 Warm In Worker: Signed CBC W/DIFF, AUTOMATED Collected: 02/09/2018 Status: F Source: [place] 11:16 AM [facility] [place] CODE TESTS RESULT OUT OF RANGE REFERENCE UNITS LAB L100.1000 4.4-11.0 K/mm3 Low WBC 3.6 LAB L100.1200 4.2-5.4 M/mm3 Low RBC 3.71 LAB L100.1300 12.0-15.0 g/dl Low HGB 11.6 LAB L100.1400 37-47 % Low HCT 36.3 LAB L100.1500 81-99 fL Normal MCV 97.8 LAB L100.1600 27.0-32.0 pg Normal MCH 31.3 LAB L100.1700 32-36 g/gl Normal MCHC 32.0 LAB L100.1810 11.6-14.6 % Normal RDW CV 13.4 LAB L100.1820 35.1-43.9 fl High RDW SD 46.5 LAB L100.1900 150-450 K/mm3 Normal PLT 180 LAB L100.2000 6.2-12.0 fl Normal MPV 9.8 LAB L100.2100 47-70 % Normal NEUT% 59.4 LAB L100.2200 19-41 % Normal LY% 25.1 LAB L100.2300 0-10 % Normal MONO% 9.4 LAB L100.2400 0-5 % High EO% 5.2 LAB L100.2500 0-1 % Normal BASO% 0.6 LAB L100.2550 0.0-0.9 % Normal IM GRAN % 0.300 Result Comment: IG% - Immature Granulocytes (promyelocytes, myelocytes and metamyelocytes) > 1% indicates that a LEFT SHIFT is Present. LAB L100.2620 2.0-7.7 X10 3/uL Normal Absolute Neut 2.2 LAB L100.2720 0.83-4.51 X10 3/ul Normal Absolute Lymph 0.91 Performed By: #### L100.0100 #### [place] [facility] [address] [place], [place], [id number] VITAMIN D,25 HYDROXY Collected: 02/09/2018 Status: F Source: [place] 11:16 AM [facility] [place] CODE TESTS RESULT OUT OF REFERENCE UNITS RANGE LAB L506.1000 29.95-100.01 ng/mL Low Vitamin D 9.8 25-OH Result Comment: Vitamin D 25(OH) Status Range Deficiency <20 ng/mL (50nmol/L) Insuffciency 20 - 30 ng/mL (50 - 75 nmol/L) Sufficiency 30 - 100 ng/mL (75 - 250 nmol/L) Toxicity >100 ng/mL (>250 nmol/L) Performed By: #### L506.1000 #### [facility] [address] [place], [place], [address] COMPREHENSIVE METABOLIC Collected: 02/09/2018 Status: F Source: [place] [facility] 11:16 AM [facility] [place] TYPE CODE TESTS RESULT OUT OF RANGE REFERENCE UNITS LAB L501.0100 74-106 mg/dL Normal GLU 91 Result Comment: Please note revised GLUCOSE reference range effective 2017. LAB L501.1000 7-18 mg/dL High BUN 19 LAB L501.1100 0.55-1.02 mg/dL Normal CREAT,SERUM 0.98 Result Comment: The validity of the calculated GFR AND GFRAA in patients over 70 years has not been determined. Clinical correlation is essential. LAB L501.1110 >60 mL/min Low EST GFR 58 Result Comment: Non- GFR Calc LAB L501.1115 >60 mL/min Normal EST GFR - AA 71 Result Comment: GFR Calc LAB L501.1300 10-20 RATIO Normal BUN/CRE 19.4 LAB L501.1500 6.4-8.2 g/dL T Normal PROT 6.7 LAB L501.1800 3.2-5.0 g/dL Normal ALB 3.3 LAB L501.1950 2.2-4.2 g/dL Normal GLOB 3.4 LAB L501.2000 0.9-2.4 RATIO Normal A/G 1.0 LAB L501.2200 8.5-10.1 mg/dL CA Normal 8.6 LAB L501.4100 15-37 U/L Normal AST 26 LAB L501.4305 45-117 U/L Normal ALK P 97 LAB L501.4405 13-56 U/L Normal ALT 24 LAB L501.4600 0.20-1.00 mg/dL T Normal BILI 0.30 LAB L501.5300 136-145 mmol/L NA Normal 144 LAB L501.5600 3.5-5.1 mmol/L K Normal 4.7 LAB L501.5900 98-107 mmol/L High CL 109 LAB L501.6100 21.0-32.0 mmol/L Normal CO2 27.0 LAB L501.6200 5-15 Normal GAP 8 Performed By: #### L500.4050, L501.9520 #### [facility] [address] [place] [place], [address] THYROID STIM HORMONE Collected: 02/09/2018 Status: F Source: [place] (TSH) 11:16 AM [facility] [place] TYPE CODE TESTS RESULT OUT OF RANGE REFERENCE UNITS LAB L501.9520 0.358-3.74 uIU/mL Normal TSH 3.61 Performed By: #### L500.4050, L501.9520 #### [facility] [address] [place], [address] BRAIN/HEAD WITHOUT Observed: 10/12/2017 Status: F Source: [place] CONTRAST 3:17 PM [facility] [place] [facility] Imaging Services [address] [place] [address] Brain/Head without Contrast MR#: [id number] Acct: [id number] Name: MARYANNE MATAMOROS Rep #: [id number] : 1940 F 77 From: Grey Lund MD PCP: Milan MCCALL,Gogo Rodrigues Status: REG CLI Study: Brain/Head without Contrast Date of Exam: 10/12/17 Exam# [id number] Ordering Dr: Gogo Yates MD STUDY: CT BRAIN WITHOUT CONTRAST REASON FOR EXAM: Female, 77 years old. HEADACHE RADIATION DOSAGE (If Supplied By Facility): CTDIvol = ( 44.99 ) mGy, DLP = ( 714.56 ) mGycm TECHNIQUE: Transaxial CT imaging of the brain was performed without administration of intravenous contrast material. COMPARISON: 10/09/2011 FINDINGS: Normal soft tissue structures. Normal calvarium. There are calcifications around the carotid artery. These are noted in the cavernous carotid arteries. There is mild cerebral atrophy with widening of the extra- axial spaces and ventricular dilatation. There are areas of decreased attenuation within the white matter tracts of the supratentorial brain, consistent with microvascular disease changes. Normal basal ganglia and thalami. Normal brainstem. There is mild cerebellar atrophy. There is no intracranial hemorrhage. There are no findings of an acute ischemic infarction. Normal visualized paranasal sinuses. CT/Brain/Head without Contrast IMPRESSION: Chronic involutional changes of the brain. There are no acute findings. Electronically Signed: Grey Lund MD at 16:15 EST , Service support , CC: Gogo Yates MD Warm In Worker: Signed CERV SPINE 2 OR 3 Observed: 09/27/2017 Status: F Source: [place] VIEWS 5:57 PM [facility] [place] [facility] Imaging Services [address] [place] [address] Cerv Spine 2 or 3 Views MR#: [id number] Acct: [id number] Name: MARYANNE MATAMOROS Rep #: [id number] : 1940 F 77 From: Tico Fitzpatrick MD PCP: Gogo Yates MD, Chi Status: REG CLI Study: Cerv Spine 2 or 3 Views Date of Exam: 09/27/17 Exam# [id number] Ordering Dr: Gogo Yaets MD STUDY: X-RAY - CERVICAL SPINE REASON FOR EXAM: Female, 77 years old. Headaches and neck pain. TECHNIQUE: 3 view(s) of the cervical spine were obtained. COMPARISON: None FINDINGS: Normal anterior atlantoaxial articulation. Normal odontoid process. There is straightening of the normal cervical lordosis. There is multi-level endplate spondylosis. There is multi-level degenerative disc disease with multilevel disc space narrowing. Facet joint osteoarthritis. There are atherosclerotic vascular calcifications of the carotid arteries. RAD/Cerv Spine 2 or 3 Views IMPRESSION: Multilevel spondylosis and disc space narrowing. Electronically Signed: Tico Fitzpatrick MD at 12:25 EST Tel [phone], Service support , CC: Gogo Yates MD Warm In Worker: Signed THORACIC SPINE 3 Observed: 09/27/2017 Status: F Source: [place] VIEWS 5:57 PM [facility] [place] [facility] Imaging Services [address] [place] [address] Thoracic Spine 3 Views MR#: [id number] Acct: [id number] Name: MARYANNE MATAMOROS Rep #: [id number] : 1940 F 77 From: Tico Fitzpatrick MD PCP: Gogo Yates MD, Chi Status: REG CLI Study: Thoracic Spine 3 Views Date of Exam: 09/27/17 Exam# [id number] Ordering Dr: Gogo Yates MD STUDY: X-RAY - THORACIC SPINE REASON FOR EXAM: Female, 77 years old. Back pain and headaches. TECHNIQUE: AP and lateral view(s) of the thoracic spine were obtained. COMPARISON: None. FINDINGS: Normal kyphosis of the thoracic spine. There is no substantial scoliosis. There is demineralization of the thoracic spine with endplate spondylosis. There is multilevel disc space narrowing of the thoracic spine. The soft tissue structures are unremarkable. RAD/Thoracic Spine 3 Views IMPRESSION: Multilevel disc space narrowing. Electronically Signed: Tico Fitzpatrick MD at 12:25 EST Tel [phone], Service support , CC: Gogo Yates MD Warm In Worker: Signed ALLERGIES ALLERGIES DATE TYPE / CODE NAME / CODE REACTION SEVERITY SOURCE 05/22/2017 Drug No Known Unknown [facility] Allergy/4160 Allergies/F00 Hospital 64914(SNOMED 9952420(RXNOR Repository CT) M) ENCOUNTERS ENCOUNTERS ADMIT/DISCHARGE ACCOUNT NUMBER ADMITTING ENCOUNTER LOCATION SOURCE CLASS 09/19/2018/09/19/19 [id number] Amb[place] [facility] [place]/15/2018/09/15/19 [id number] Ambulatory BMSBuilding: [place] [facility] [place] 09/12/[id number] [facility] ding:HPRAD Repository 09/12/2018 [id number] Amb[place] [facility]MSBuilding: [place] [facility] [place] 09/12/2018/09/12/19 [id number] Ambulatory BMSBuilding: [place] 19 [facility] [place] 08/10/[id number] [facility] ding:POLAB3 Repository 08/05/[id number] [facility] ding:OPBI Repository 06/30/[id number] [facility] ding:CVS Repository 06/29/[id number] [facility] ding:RAD Repository 02/09/[id number] [facility] ding:CVS Repository 10/20/2017/10/20/19 [id number] Ambulatory [address] [facility] 10/20/[id number] [facility] ding:OMD Repository 10/20/2017 [id number] Ambulatory BMSBuilding: [place] BMS.[facility] Repository 10/12/2017 [id number] [facility] ding:CT Repository 09/27/2017 [id number] [facility] ding:RAD Repository PAYERS PAYERS ENCOUNTER GUARANTOR PAYER SUBSCRIBER SOURCE 09/19/2018 MARYANNE K Primary MARYANNE K [place] [id number] Insurance:ANTHEM COURSONDOB: Community [place] MEDICARE [facility] [id number] Number: Repository [address]Ekl: (330) [id number] [phone] (HP) Date:5267-24-14NH [address] [place] [address]96[address]ZL: 09/19/2018 Secondary NOT GIVENUNK [place] Insurance:SELF PAY [facility] Number: Effective Repository Date:2018-09-19 09/15/2018 MARYANNE K Primary MARYANNE K [place] [id number] Insurance:ANTHEM COURSONDOB: Community [place] MEDICARE [facility] [id number] [place] Number[facility] Repository [phone]: (330) [id number] [phone] Date:8814-47-53AG [address] [place] [address] 22843TV: 09/15/2018 Secondary NOT GIVENUNK [place] Insurance:SELF PAY [facility] Number: Effective Repository Date:2018-09-15 09/12/2018 MARYANNE K Primary NOT GIVENUNK [place] [id number] Insurance:SELF PAY [facility] Number: Effective Repository [phone]: (330) Date:2018-09-12 [phone] (HP) 09/12/2018 MARYANNE K Primary NOT GIVENUNK [place] [id number] Insurance:SELF [place] [facility] [place] Number: Effective Repository [phone]: (330) Date:2018-09-12 [phone] (HP) 09/12/2018 MARYANNE K Primary MARYANNE K [place] [id number] Insurance:ANTHEM COURSONDOB: Community [place] MEDICARE [id number] [place] Number: Repository [address]Njn: (330) [id number] [phone] (HP) Date:3331-08-44AZ [address]WZBLD, [place] [address]IX: 09/12/2018 Secondary NOT GIVENUNK [place] Insurance:SELF PAY [facility] Number: Effective Repository Date:2018-09-09 08/10/2018 MARYANNE K Primary MARYANNE K [place] [id number] Insurance:ANTHEM COURSONDOB: Community [place] MEDICARE [facility] [id number] [place] Number: Repository 132[address]Frq: (330) [id number] [phone] (HP) Date:6309-30-16KS [address], [place] [address]HC: 08/10/2018 Secondary NOT GIVENUNK [place] Insurance:SELF PAY [facility] Number: Effective Repository Date:2018-08-10 08/05/2018 MARYANNE K Primary MARYANNE K [place] [id number] Insurance:ANTHEM COURSONDOB: Community [place] MEDICARE [facility] [id number] Number: Repository 97[address]Syv: (330) [id number] [phone] (HP) Date:7928-59-51DX [address]VERCJG, [place] [address]FE: 08/05/2018 Secondary NOT GIVENUNK [place] Insurance:SELF PAY [facility] Number: Effective Repository Date:2018-06-03 06/30/2018 Maryanne K Primary Maryanne K [place] [id number] Insurance:ANTHEM CoursonDOB: Community [place] MEDICARE [facility] [id number] [place] Number: Repository [address]Tae: (330) [id number] [phone] (HP) Date:1549-71-87VT [address]ESCM[address], [place] [address]YC: 06/30/2018 Secondary NOT GIVENUNK [place] Insurance:SELF PAY [facility] Number: Effective Repository Date:2018-06-30 06/29/2018 Maryanne K Primary Maryanne K [place] [id number] Insurance:ANTHEM CoursonDOB: Community [place] MEDICARE PP[place]icy [id number] Number: Repository [address]Uqh: (330) [id number] [phone] () Date:0366-97-83QX [address] [place] [address]KI: 06/29/2018 Secondary NOT GIVENUNK [place] Insurance:SELF PAY [facility] Number: Effective Repository Date:2018-06-29 02/09/2018 Maryanne K Primary Maryanne K [place] [id number] Insurance:ANTHEM CoursonDOB: [facility] Iwlliamur MEDICARE PPOPolicy [id number], [place] Number: Repository [address]Gqt: [id number] [phone] Date:0609-73-39CP [address] () [id number] [place] [address]GC: 02/09/2018 Secondary NOT GIVENUNK [place] Insurance:SELF PAY [facility] Number: Effective Repository Date:2018-02-09 10/20/2017 MARYANNE K Primary MARYANNE K [facility] COURSONDOB: Insurance:ANTHEM COURSONDOB: [facility] [id number] [facility] [id number] Repository WILLIAM Number: [address] [place], [place] [id number] [place], [place] [address]Cut: (330) Date:2017-10-20 19154Fjd: () [id number] Name:[address] ()Tel: [phone], [place] [phone] () 66[address]XJ: 10/20/2017 Maryanne K Primary Maryanne K [place] [id number] Insurance:ANTHEM CoursonDOB: Community [place] MEDICARE PPOPolicy [id number] [place] Number: Repository [address]Dqh: [id number] [phone] Date:7436-10-57TB [address] () [id number] [address]DM: 10/20/2017 Secondary NOT GIVENUNK [place] Insurance:SELF PAY [facility] Number: Effective Repository Date:2017-10-05 10/20/2017 Maryanne K Primary Maryanne K [place] [id number] Insurance:ANTHEM CoursonDOB: Community [place] MEDICARE PPOPolicy [id number] View [facility] Number: Repository [address]Zzb: [id number] [phone] Date:6922-67-90QR [address] () [address]HFNUSKQ, [place] [address]EL: 10/20/2017 Secondary NOT GIVENUNK [place] Insurance:SELF PAY [facility] Number: Effective Repository Date:2017-10-20 10/12/2017 Maryanne K Primary Maryanne K [place] [id number] Insurance:ANTHEM CoursonDOB: Community [place] MEDICARE PPOPolicy [id number] View Hospital, [place] Number: Repository [address]Dhv: [id number] [phone] Date:6744-96-57MI [address] () [address]140[address]RLHBICL [place] [address]UV: 10/12/2017 Secondary NOT GIVENUNK [place] Insurance:SELF PAY [facility] Number: Effective Repository Date:2017-10-04 09/27/2017 Maryanne K Primary Maryanne K [place] [id number] Insurance:ANTHEM CoursonDOB: Community [place] MEDICARE PPOPolicy [id number] [place] Number: Repository [address]Rwi: [id number] [phone] Date:9194-40-60OL [address] () [id number], [place] [address]RE: 09/27/2017 Secondary NOT GIVENUNK [place] Insurance:SELF PAY [facility] Number: Effective Repository Date:2017-09-27
== END ==
PROVIDERS: Family Provider Family Medicine Geriatric Medicine; PCP Family Medicine Geriatric Medicine; Visit Provider Family Medicine Geriatric Medicine
DX: R53.83 Other fatigue (principal); E55.9 Vitamin D deficiency, unspecified
CPT/HCPCS: 36415; 80053; 82306; 84443; 85025

== ENCOUNTER → 2018-10-24 11:32 | Outpatient (CLI) | payer MEDICARE, SELFPAY ==
[2018-10-24 11:15] VITALS: BMI 24.4
--- NOTE | 2018-10-24 11:33 | RAD_ITS ---
STUDY: X-RAY - LUMBAR SPINE REASON FOR EXAM: Female, 78 years old. Low back pain TECHNIQUE: 5 view(s) of the lumbar spine were obtained. COMPARISON: MRI 08/26/2016 FINDINGS: Normal lumbar lordosis. There is no substantial scoliosis. There is a normal alignment of the vertebrae. Normal vertebral bodies and endplates. There is multi-level degenerative disc disease with multi-level disc space narrowing. Findings are most pronounced at L5-S1, and similar to prior MRI. There is no demonstrated fracture. The soft tissue structures are unremarkable. RAD/L/S Spine Min 4 Views IMPRESSION: No acute abnormalities. Degenerative changes especially at L5-S1 but relatively mild for age and stable. Electronically Signed: Cristian Foley MD at 23:20 EST , Service support ,
== END ==
PROVIDERS: Family Provider Family Medicine Geriatric Medicine; PCP Family Medicine Geriatric Medicine; Referring Provider Orthopaedic Surgery; Visit Provider Orthopaedic Surgery
DX: M54.5 Low back pain (principal)
CPT/HCPCS: 72110

== ENCOUNTER 2018-10-28 12:54 | Outpatient (RCR) | payer MEDICARE, SELFPAY ==
[2018-10-24 11:15] VITALS: BMI 24.4
[2018-10-24 13:28] VITALS: BMI 25.1
--- NOTE | 2018-10-28 14:23 | HP.PTEVAL ---
Patient's Visit Information FELIX MATAMOROS is a 78 year old F referred to Physical Therapy by Rigo Reynolds DO with a diagnosis of LUMBAR OA, M47.816. Date of Evaluation: 10/28/18 Physical Therapist: Henry Rock PT, Cert MDT, OCS - Visit Plan Frequency: 2x /Week Duration: 6 Weeks Plan: PATIENT UABLE TO LAY FLAT. INITIATE DLS PROGRAM,POSTURAL EX'S ,LE STRENGTHENING - Subjective Findings: This 78 y/o female presenst to physical therapy with lumbar OA . Patient has lumbar pain many years ,but had episode one year ago fell right leg gave way at restaurant . Patient sustained a right supior and inferior rami fracture.Patient follow up with [facility] Patient went to chiropractor whiched helped.Patient pain located L-S region /SI region . Denies parathesia/tingling. Bowel/bladder good.Sleeping better with sleeping MEDS. Patient has pain with supine.Coughing/sneezing. Aggraveting factors standing,walking,elevation from chair,AM in getting OOB. Alleviating factors heat. Patient L-S pain affect QOL and function. SOCAIL: . VOCATION: retired - Pain Bilateral Back Pain Intensity (Out of 10): 7 Pain Intensity Range: 10 - Objective POSTURE: mild foward posture. GAIT:reciprocal pattern slow zia. NEURO: intact ,denies parathesia/tingling,reflexes L3-4,L4-5,L5-S1 2/3. SYMMTRIES: align. PALAPTION: tender SI. MMT:quads/hams 4-/5,hip flexion 4-/5,abd 3+/5,ankle 4/5. LUMBAR ROM: flexion min loss,extension mod loss,side glides min loss - Special Tests L/S Slump test left side: Negative L/S Slump test right side: Negative L/S Left Straight Leg Raise: Negative L/S Right Straight Leg Raise: Negative Lumbar Standing: Flexion - Mechanical Response: No effect Lumbar Standing: Flexion - Symptoms During Testing: No effect Lumbar Standing: Flexion - Symptoms After Testing: No effect Lumbar Standing: Extension - Mechanical Response: No effect Lumbar Standing: Extension - Symptoms During Testing: Increases Lumbar Standing: Extension - Symptoms After Testing: No worse Lumbar Standing: Right Side Glides - Mechanical Response: No effect Lumbar Standing: Right Side Parrott - Symptoms During Testing: Increases Lumbar Standing: Right Side Parrott - Symptoms After Testing: No worse Lumbar Standing: Left Side Parrott - Mechanical Response: No effect Lumbar Standing: Left Side Parrott - Symptoms During Testing: Increases Lumbar Standing: Left Side Parrott - Symptoms After Testing: No worse - Goals Goal 1:: Independant with HEP Goal Time Frame: 4-6 Weeks Goal 2:: Independant with posture for ADL'S. Goal Time Frame: 4-6 Weeks Goal 3:: Decrease lumbar pain by 50 % or greater to improve function with ADL'S Goal Time Frame: 4-6 Weeks Goal 4:: Patient to improve lumbar ROM for function of recovery Goal Time Frame: 4-6 Weeks Goal 5:: Patient to improve Back RAJ score by 5 points or greater to improve QOL. Goal Time Frame: 4-6 Weeks - Rehabilitation Potential Physical Therapy Diagnosis: This 78 y/o female presents to physical therapy with lumbar pain with impairments with ROM ,pain,unable to lay flat ,derease strength increases with walking,standing causes deficits with ADL'S and housework tasks. Rehabilitation Potential: Good - Anticipated Interventions Patient/Client Instruction: Educate patient on: Condition, Plan of Care For the Purpose of:: To decrease pain, To improve muscle performance and motor function, To improve ability to perform ADL's, To increase tolerance to activity/condition/position, To improve ability of physical actions for home/community/work/leisure, To improve health of tissue, To decrease soft tissue restriction, To increase flexibility/ROM, To improve balance, To improve ability to perform tasks related to life management Therapeutic Exercise to Include: Strength training, Body mechanics, Postural training, Flexibilty training, Dynamic Lumbar Stabilization Comment: BLE For the Purpose of:: To decrease pain, To increase ROM, To improve muscle performance and motor function, To improve ability to perform ADL's, To increase tolerance to activity/condition/position, To improve ability of physical actions for home/community/work/leisure, To improve health of tissue, To decrease soft tissue restriction, To increase flexibility/ROM, To improve ability to perform tasks related to life management Thank you for the opportunity to evaluate your patient. For Medicare and Medicare HMO plans, please review the plan of care and approve it. It will need to be FAXED BACK to us at [phone] for Medicare purposes. For Medicare only, by signing this I certify the plan of care. Please let me know if there are questions or concerns regarding this plan of care. Physician Signature: Date:
--- NOTE | 2018-12-07 11:03 | HP.PT.NRP ---
HP - Discharge Summary (1) - Patient Information FELIX MATAMOROS was seen in my office for initial evaluation on 10/28/18. The following Plan of Care was established for this patient: Initial Frequency: 2x /Week Initial Duration: 6 Weeks - Anticipated Interventions Patient/Client Instruction: Educate patient on: Condition, Plan of Care For the Purpose of:: To decrease pain, To improve muscle performance and motor function, To improve ability to perform ADL's, To increase tolerance to activity/condition/position, To improve ability of physical actions for home/community/work/leisure, To improve health of tissue, To decrease soft tissue restriction, To increase flexibility/ROM, To improve balance, To improve ability to perform tasks related to life management Therapeutic Exercise to Include: Strength training, Body mechanics, Postural training, Flexibilty training, Dynamic Lumbar Stabilization For the Purpose of:: To decrease pain, To increase ROM, To improve muscle performance and motor function, To improve ability to perform ADL's, To increase tolerance to activity/condition/position, To improve ability of physical actions for home/community/work/leisure, To improve health of tissue, To decrease soft tissue restriction, To increase flexibility/ROM, To improve ability to perform tasks related to life management This patient was last seen in our office 10/28/18. Pertinent comments regarding their Physical therapy will appear below: Patient seen for Intial PT for HEP ,BUT WILL CONT WITH CHIROPRACTIC At this point I will be discontinuing this patient from physical therapy. I would be happy to see this patient again in the future if found appropriate by the physician. Thank you! Henry Rock, PT, Cert MDT, OCS
== END 2018-10-28 19:00 | disposition home or self-care (01) ==
LOC: PT 12:54
PROVIDERS: Family Provider Family Medicine Geriatric Medicine; PCP Family Medicine Geriatric Medicine; Visit Provider Orthopaedic Surgery
DX: M47.816 Spondylosis without myelopathy or radiculopathy, lumbar region (principal)
CPT/HCPCS: 97110; 97162

== ENCOUNTER → 2019-02-13 10:34 | Outpatient (CLI) | payer MEDICARE, SELFPAY ==
[2018-10-24 13:28] VITALS: BMI 25.1
[2019-02-13 12:24] LABS: Absolute Lymphocyte Count 1.11 X10^3/ul (0.83-4.51); Absolute Neutrophil Count 2.1 X10^3/uL (2.0-7.7); Basophil# 0.02 X10^3/uL; Basophil% 0.6 % (0-1); Eosinophil# 0.01 X10^3/uL; Eosinophils% 0.3 % (0-5); Hematocrit 40.7 % (37-47); Hemoglobin 12.9 g/dl (12.0-15.0); Lymphocyte # 1.11 X10^3/ul (4.0); Lymphocyte % 30.7 % (19-41); Mean Corp Hgb Conc 31.7 g/gl (32-36); Mean Corpuscular Volume 94.7 fL (81-99); Mean Platelet Vol. 10.3 fl (6.2-12.0); Monocyte# 0.36 X10^3/uL; Monocyte% 9.9 % (0-10); Neutrophil # 2.12 X10^3/uL (2.7-7.7); Neutrophil % 58.5 % (47-70); Platelet Count 177 K/mm3 (150-450); RBC Distribution Width CV 13.6 % (11.6-14.6); White Blood Count 3.6 K/mm3 (4.4-11.0)
[2019-02-13 12:39] LABS: POSITIVE COUNT NO; POSITIVE DIFFERENTIAL NO; POSITIVE MORPHOLOGY NO
[2019-02-13 12:43] LABS: Vitamin D,25 Hydroxy 46.6 ng/mL (29.95-100.01)
[2019-02-13 12:54] LABS: ALB/GLOB Ratio 1.2 RATIO (0.9-2.4); AST(SGOT) 25 U/L (15-37); Alanine Aminotransfer ALT/SGPT 26 U/L (13-56); Albumin, Serum 3.9 g/dL (3.2-5.0); Alkaline Phosphatase 68 U/L (45-117); Anion Gap 7 (5-15); BUN 27 mg/dL (7-18); BUN/Creat Ratio 22.9 RATIO (10-20); Calcium,Total 9.1 mg/dL (8.5-10.1); Chloride 106 mmol/L (98-107); Creatinine, Serum 1.18 mg/dL (0.55-1.02); EST Glomerular Filtration Rate 47 mL/min (>60); Est Glom Filt Rate - Afr Amer 57 mL/min (>60); Globulin 3.3 g/dL (2.2-4.2); Glucose 100 mg/dL (74-106); Potassium 4.6 mmol/L (3.5-5.1); Protein, Total 7.2 g/dL (6.4-8.2); Sodium Level 138 mmol/L (136-145); Thyroid Stim Hormone (TSH) 5.03 uIU/mL (0.358-3.74)
== END ==
PROVIDERS: Family Provider Family Medicine Geriatric Medicine; PCP Family Medicine Geriatric Medicine; Visit Provider Family Medicine Geriatric Medicine
DX: R53.83 Other fatigue (principal); E55.9 Vitamin D deficiency, unspecified
CPT/HCPCS: 36415; 80053; 82306; 84443; 85025

== ENCOUNTER → 2019-03-30 15:32 | Outpatient (CLI) | payer MEDICARE, SELFPAY ==
[2018-10-24 13:28] VITALS: BMI 25.1
[2019-03-30 17:22] LABS: Thyroid Stim Hormone (TSH) 1.67 uIU/mL (0.358-3.74)
== END ==
PROVIDERS: Family Provider Family Medicine Geriatric Medicine; PCP Family Medicine Geriatric Medicine; Visit Provider Family Medicine Geriatric Medicine
DX: E03.9 Hypothyroidism, unspecified (principal)
CPT/HCPCS: 36415; 84443

== ENCOUNTER → 2019-08-07 11:53 | Outpatient (CLI) | payer MEDICARE, SELFPAY ==
[2018-10-24 13:28] VITALS: BMI 25.1
--- NOTE | 2019-08-07 11:56 | BI_ITS ---
MAMMOGRAPHY - BILATERAL SCREENING REASON FOR EXAM: Female, 78 years old. Routine annual screening examination. PERTINENT HISTORY: Personal history of breast cancer. Prior right lumpectomy with radiation therapy. TECHNIQUE: Digital bilateral breast lisandro (3D mammographic acquisition) in the CC and MLO projections. 2-D mediolateral oblique (MLO) and craniocaudad (CC) views of both breasts were obtained. CAD: Full Field Digital Mammography with Computer Added Detection was performed. COMPARISON: Comparison is made with prior examination dated August 05, 2018 and August 04, 2017. FINDINGS: Breast Composition: There are scattered areas of fibroglandular density. There are no dominant masses or suspicious calcifications. Stable postoperative changes are seen in the deep central portion of the right breast secondary to prior lumpectomy and radiation. Stable bilateral secretory calcifications. No other significant abnormalities are identified. There has been no significant change since the prior study. BI/SCREEN MAMM (CAD) W/LISANDRO BILAT IMPRESSION: Stable bilateral screening mammogram. Yearly follow-up mammogram recommended. (A) ASSESSMENT CATEGORY: BIRADS Category 2: Benign. A letter regarding these results will be sent to the patient by the facility within 30 days. Approximately 10% of breast cancers are not detected by mammography. A normal mammogram should not delay biopsy of a clinically suspicious abnormality. [id number] Electronically Signed: Tico Fitzpatrick, at 14:23 EST , Service support ,
== END ==
PROVIDERS: Family Provider Family Medicine Geriatric Medicine; PCP Family Medicine Geriatric Medicine; Referring Provider Internal Medicine Medical Oncology; Visit Provider Internal Medicine Medical Oncology
DX: Z12.31 Encounter for screening mammogram for malignant neoplasm of breast (principal); D05.11 Intraductal carcinoma in situ of right breast
CPT/HCPCS: 77063; 77067

== ENCOUNTER → 2019-08-14 14:41 | Outpatient (CLI) | payer MEDICARE, SELFPAY ==
[2018-10-24 13:28] VITALS: BMI 25.1
[2019-08-14 16:44] LABS: Absolute Lymphocyte Count 1.45 X10^3/uL (0.83-4.51); Absolute Neutrophil Count 2.3 X10^3/uL (2.0-7.7); Basophil# 0.04 X10^3/uL; Basophil% 0.9 % (0-1); Eosinophil# 0.23 X10^3/uL; Eosinophils% 5.2 % (0-5); Hematocrit 38.4 % (37-47); Hemoglobin 12.3 g/dL (12.0-15.0); Lymphocyte # 1.45 X10^3/ul (4.0); Lymphocyte % 32.6 % (19-41); Mean Corpuscular Hgb 30.2 pg (27.0-32.0); Mean Corpuscular Volume 94.3 fL (81-99); Mean Platelet Vol. 10.5 fl (6.2-12.0); Monocyte# 0.44 X10^3/uL; Monocyte% 9.9 % (0-10); NRBC Flagged by Analyzer 0 % (0-5); Neutrophil # 2.28 X10^3/uL (2.7-7.7); Neutrophil % 51.2 % (47-70); Platelet Count 182 K/mm3 (150-450); RBC Distribution Width CV 14.2 % (11.6-14.6); RBC Distribution Width SD 49.3 fl (35.1-43.9); Red Blood Count 4.07 M/mm3 (4.2-5.4); White Blood Count 4.5 K/mm3 (4.4-11.0)
[2019-08-14 17:14] LABS: Vitamin D,25 Hydroxy 29.9 ng/mL (29.95-100.01)
[2019-08-14 17:21] LABS: ALB/GLOB Ratio 1.1 RATIO (0.9-2.4); AST(SGOT) 26 U/L (15-37); Alanine Aminotransfer ALT/SGPT 27 U/L (13-56); Albumin, Serum 3.6 g/dL (3.2-5.0); Alkaline Phosphatase 78 U/L (45-117); Anion Gap 7 (5-15); BUN 19 mg/dL (7-18); BUN/Creat Ratio 17.6 RATIO (10-20); Calcium,Total 8.8 mg/dL (8.5-10.1); Chloride 110 mmol/L (98-107); Creatinine, Serum 1.08 mg/dL (0.55-1.02); EST Glomerular Filtration Rate 52 mL/min (>60); Est Glom Filt Rate - Afr Amer 63 mL/min (>60); Globulin 3.3 g/dL (2.2-4.2); Glucose 97 mg/dL (74-106); Potassium 4.4 mmol/L (3.5-5.1); Protein, Total 6.9 g/dL (6.4-8.2); Sodium Level 141 mmol/L (136-145); Thyroid Stim Hormone (TSH) 2.38 uIU/mL (0.358-3.74)
== END ==
PROVIDERS: Family Provider Family Medicine Geriatric Medicine; PCP Family Medicine Geriatric Medicine; Visit Provider Family Medicine Geriatric Medicine
DX: E55.9 Vitamin D deficiency, unspecified (principal); R53.83 Other fatigue
CPT/HCPCS: 36415; 80053; 82306; 84443; 85025

== ENCOUNTER → 2019-09-07 12:19 | Outpatient (CLI) | payer MEDICARE, SELFPAY ==
[2018-10-24 13:28] VITALS: BMI 25.1
--- NOTE | 2019-09-07 12:30 | RAD_ITS ---
STUDY: X-RAY - LEFT FOOT CLINICAL: Female, 78 years old. LEFT FOOT PAIN/STS, 2ND AND 4TH TOES. NKI. HX SURGERY TO 1ST AND 2ND METATARSAL. TECHNIQUE: 3 view(s) of the foot. COMPARISON: None. FINDINGS: Normal talus, calcaneus, and tarsal bones. Normal visualized subtalar, talonavicular, calcaneocuboid, tarsal and tarsometatarsal articulations. Foreshortening and mild angulation of the first metatarsal compatible with prior surgery with apparent prior bunionectomy (smooth medial margin of the metatarsal head). There is degenerative arthrosis of the metatarsophalangeal joint of the hallux with a hallux valgus deformity. Normal tibial and fibular sesamoid bones. Normal interphalangeal joint of the great toe. Normal phalanges of the great toe. Normal second through fifth metatarsophalangeal joints. Curvilinear lucency at the base of the fourth proximal phalanx with soft tissue swelling of the fourth toe. There is mild amount of callus along the medial margin of the proximal phalanx. The soft tissue structures are otherwise unremarkable. RAD/Foot min 3 Views IMPRESSION: 1. Nondisplaced subacute fourth proximal phalanx fracture. 2. Operative changes of the first metatarsal. 3. Degenerative changes of first MTP joint. Electronically Signed: Darius Kelsey MD (Brooks) at 8:10 EST , Service support ,
[2019-09-07 12:40] LABS: Erythrocyte Sedimentation Rate 7 mm/hr (0-30)
[2019-09-07 12:48] LABS: Absolute Lymphocyte Count 1.29 X10^3/uL (0.83-4.51); Absolute Neutrophil Count 2.8 X10^3/uL (2.0-7.7); Basophil# 0.04 X10^3/uL; Basophil% 0.8 % (0-1); Eosinophil# 0.23 X10^3/uL; Eosinophils% 4.8 % (0-5); Hematocrit 40.1 % (37-47); Hemoglobin 12.9 g/dL (12.0-15.0); Lymphocyte # 1.29 X10^3/ul (4.0); Lymphocyte % 26.8 % (19-41); Mean Corp Hgb Conc 32.2 g/dL (32-36); Mean Corpuscular Hgb 30.1 pg (27.0-32.0); Mean Corpuscular Volume 93.7 fL (81-99); Mean Platelet Vol. 9.9 fl (6.2-12.0); Monocyte# 0.41 X10^3/uL; Monocyte% 8.5 % (0-10); NRBC Flagged by Analyzer 0 % (0-5); Neutrophil # 2.84 X10^3/uL (2.7-7.7); Neutrophil % 59.1 % (47-70); Platelet Count 176 K/mm3 (150-450); RBC Distribution Width CV 14.2 % (11.6-14.6); RBC Distribution Width SD 48.9 fl (35.1-43.9); Red Blood Count 4.28 M/mm3 (4.2-5.4); White Blood Count 4.8 K/mm3 (4.4-11.0)
[2019-09-07 12:59] LABS: Anion Gap 2 (5-15); BUN 25 mg/dL (7-18); BUN/Creat Ratio 23.8 RATIO (10-20); CRP < 2.90 mg/L (0.0-3.0); Calcium,Total 9.4 mg/dL (8.5-10.1); Chloride 108 mmol/L (98-107); Creatinine, Serum 1.05 mg/dL (0.55-1.02); EST Glomerular Filtration Rate 54 mL/min (>60); Est Glom Filt Rate - Afr Amer 65 mL/min (>60); Glucose 95 mg/dL (74-106); Potassium 4.8 mmol/L (3.5-5.1); Sodium Level 139 mmol/L (136-145); Uric Acid 4.3 mg/dL (2.6-6.0)
== END ==
LOC: POLAB3 12:19 → RAD 12:28
PROVIDERS: Family Provider Family Medicine Geriatric Medicine; PCP Family Medicine Geriatric Medicine; Referring Provider Family Medicine Geriatric Medicine; Visit Provider Family Medicine Geriatric Medicine
DX: M10.9 Gout, unspecified (principal); M79.672 Pain in left foot
CPT/HCPCS: 36415; 73630; 80048; 84550; 85025; 85652; 86140

== ENCOUNTER → 2019-09-18 10:59 | Outpatient (CLI) | payer MEDICARE, SELFPAY ==
[2018-10-24 13:28] VITALS: BMI 25.1
== END ==
PROVIDERS: Family Provider Family Medicine Geriatric Medicine; PCP Family Medicine Geriatric Medicine; Referring Provider Family Medicine Geriatric Medicine; Visit Provider Family Medicine Geriatric Medicine
DX: I73.9 Peripheral vascular disease, unspecified (principal)
CPT/HCPCS: 93922

== ENCOUNTER → 2020-01-26 | Outpatient (CLI) | payer MEDICARE, SELFPAY ==
[2019-10-23 14:51] VITALS: BMI 25.1
--- NOTE | 2020-01-26 08:39 | RAD_ITS ---
STUDY: X-RAY - ESOPHAGUS (BARIUM SWALLOW) WITH FLUOROSCOPY REASON FOR EXAM: Female, 79 years old. DYSPHAGIA 1-2 MONTHS, DIFFICULTY W/FOOD NOT LIQUIDS, DRY MOUTH, HX RT BREAST CA, RADIATION 2003 TECHNIQUE: 14 view(s) of the esophagus were obtained following swallowing of barium. FLUOROSCOPY TIME (if supplied): (0:32) minutes/seconds COMPARISON: None. FINDINGS: There is no demonstrated esophageal foreign body. There is no demonstrated stricture or mucosal abnormality. Normal gastroesophageal junction, without a demonstrated hiatal hernia. The patient ingested a 12 mm tablet of barium without any difficulty. Incidental note is made of a small diverticulum in the third portion of the duodenum. There is atherosclerotic tortuosity of the aortic arch and descending thoracic aorta. Normal visualized pulmonary parenchyma. There are degenerative changes of the visualized thoracic spine. RAD/Esophagus Single Contrast IMPRESSION: Normal plain film x-ray examination (barium swallow) of the esophagus. 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 Electronically Signed: Tico Fitzpatrick, at 10:04 EDT , Service support ,
== END | disposition home or self-care (01) ==
PROVIDERS: PCP Family Medicine Geriatric Medicine; Referring Provider Otolaryngology; Visit Provider Otolaryngology
DX: R13.10 Dysphagia, unspecified (principal)
CPT/HCPCS: 74220

== ENCOUNTER → 2020-02-15 | Outpatient (CLI) | payer MEDICARE, SELFPAY ==
[2019-10-23 14:51] VITALS: BMI 25.1
[2020-02-15 17:30] LABS: Absolute Lymphocyte Count 1.18 X10^3/uL (0.83-4.51); Absolute Neutrophil Count 2.9 X10^3/uL (2.0-7.7); Basophil# 0.03 X10^3/uL; Basophil% 0.6 % (0-1); Eosinophil# 0.08 X10^3/uL; Eosinophils% 1.7 % (0-5); Hematocrit 39.9 % (37-47); Hemoglobin 12.8 g/dL (12.0-15.0); Lymphocyte # 1.18 X10^3/ul (4.0); Lymphocyte % 24.9 % (19-41); Mean Corp Hgb Conc 32.1 g/dL (32-36); Mean Corpuscular Hgb 31.2 pg (27.0-32.0); Mean Corpuscular Volume 97.3 fL (81-99); Mean Platelet Vol. 10.3 fl (6.2-12.0); Monocyte# 0.51 X10^3/uL; Monocyte% 10.8 % (0-10); NRBC Flagged by Analyzer 0 % (0-5); Neutrophil # 2.92 X10^3/uL (2.7-7.7); Neutrophil % 61.8 % (47-70); Platelet Count 182 K/mm3 (150-450); RBC Distribution Width CV 13.5 % (11.6-14.6); RBC Distribution Width SD 48.1 fl (35.1-43.9); White Blood Count 4.7 K/mm3 (4.4-11.0)
[2020-02-15 17:48] LABS: Vitamin D,25 Hydroxy 48.9 ng/mL
[2020-02-15 18:08] LABS: ALB/GLOB Ratio 1.2 RATIO (0.9-2.4); AST(SGOT) 19 U/L (15-37); Alanine Aminotransfer ALT/SGPT 22 U/L (13-56); Albumin, Serum 4.1 g/dL (3.2-5.0); Alkaline Phosphatase 70 U/L (45-117); Anion Gap 6 (5-15); BUN 26 mg/dL (7-18); BUN/Creat Ratio 19.7 RATIO (10-20); Chloride 105 mmol/L (98-107); Creatinine, Serum 1.32 mg/dL (0.55-1.02); EST Glomerular Filtration Rate 41 mL/min (>60); Est Glom Filt Rate - Afr Amer 50 mL/min (>60); Globulin 3.5 g/dL (2.2-4.2); Glucose 101 mg/dL (74-106); Potassium 4.2 mmol/L (3.5-5.1); Protein, Total 7.6 g/dL (6.4-8.2); Sodium Level 139 mmol/L (136-145); Thyroid Stim Hormone (TSH) 3.13 uIU/mL (0.358-3.74)
== END | disposition home or self-care (01) ==
LOC: POLAB3 13:35
PROVIDERS: PCP Family Medicine Geriatric Medicine; Visit Provider Family Medicine Geriatric Medicine
DX: E55.9 Vitamin D deficiency, unspecified (principal); R53.83 Other fatigue
CPT/HCPCS: 36415; 80053; 82306; 84443; 85025

== ENCOUNTER → 2020-04-11 | Outpatient (CLI) | payer MEDICARE, SELFPAY ==
[2019-10-23 14:51] VITALS: BMI 25.1
[2020-04-11 15:44] LABS: CRP < 2.90 mg/L (0.0-3.0)
[2020-04-11 15:52] LABS: Erythrocyte Sedimentation Rate 6 mm/hr (0-30)
== END | disposition home or self-care (01) ==
LOC: POLAB3 11:28
PROVIDERS: PCP Family Medicine Geriatric Medicine; Visit Provider Family Medicine Geriatric Medicine
DX: M35.3 Polymyalgia rheumatica (principal)
CPT/HCPCS: 36415; 85652; 86140

== ENCOUNTER 2020-04-27 13:13 | Emergency (ER) | payer MEDICARE, SELFPAY ==
[2019-10-23 14:51] VITALS: BMI 25.1
[2020-04-27 13:14] VITALS: BP 165/86; PULSE 70; RESP 16; TEMP 36.4; O2SAT 99; BMI 26.4
--- NOTE | 2020-04-27 13:19 | RAD_ITS ---
STUDY: X-RAY - RIGHT KNEE REASON FOR EXAM: Female, 79 years old. FALL, PAIN TECHNIQUE: 3 view(s) of the knee. COMPARISON: None. FINDINGS: Normal visualized distal femur. Normal visualized proximal tibia and fibula. Normal proximal tibiofibular articulation. Normal medial femorotibial compartment. Normal lateral femorotibial compartment. Normal patellofemoral articulation. There is degeneration of the medial meniscus. The soft tissue structures are unremarkable. RAD/Knee 3 Views IMPRESSION: Unremarkable knee. Electronically Signed: Lazaro Thomas, at 14:32 EDT Tel , Service support ,
--- NOTE | 2020-04-27 13:19 | RAD_ITS ---
STUDY: X-RAY - UNILATERAL RIBS ( LEFT ) WITH CHEST REASON FOR EXAM: Female, 79 years old. FALL, PAIN TECHNIQUE - RIBS: 4 view(s) of the ribs. TECHNIQUE - CHEST: Frontal view of the chest COMPARISON: None. FINDINGS: There is no pneumothorax or displaced rib fracture. There are increased interstitial and early airspace markings in the right lower lung. There is no pneumothorax or pleural effusions. Cardiac size is normal. The skeleton is osteoporotic. RAD/Ribs Uni Min 3V w/PA Chest IMPRESSION: 1. No pneumothorax. 2. No displaced rib fracture 3. Right lower lung markings, possibly early pneumonia, versus aspiration. Recommend repeat confirmatory imaging. Electronically Signed: Lazaro Thomas, at 14:35 EDT Tel , Service support ,
--- NOTE | 2020-04-27 13:19 | RAD_ITS ---
STUDY: X-RAY - PELVIS AND LEFT HIP REASON FOR EXAM: Female, 79 years old. FALL, PAIN TECHNIQUE: 3 views of the pelvis and hip. COMPARISON: None. FINDINGS: There is a non-specific bowel gas pattern. Normal visualized soft tissue structures. Normal bilateral iliac wings, sacroiliac joints and visualized sacrum. There are old fractures of the right superior and inferior pubic rami. There are degenerative changes of the pubic symphysis with articular narrowing and sclerosis. Normal bilateral ischial tuberosities. Normal visualized femoral head. Normal acetabulum. Normal hip joint. RAD/HIP, UNI W/ Pelvis 2-3 Views IMPRESSION: Old fractures of the right pubic rami. No demonstrated acute fracture. Electronically Signed: Carlos Braun MD at 14:19 EDT Tel , Service support ,
--- NOTE | 2020-04-27 13:22 | ED.VISSUMM ---
- ER Visit Summary Date of Service: 04/27/20 Chief Complaint: Fall, right knee, left hip, left rib pain History of Present Illness: The patient is a 79 F who presents after a fall. She was sweeping her porch when she lost her footing and tripped and fell on her left hand side. She is going complaining of right knee, left chest and left hip pain. Pain is worse with movement. No LOC. She denies hitting her head. She is on no blood thinning medications. EMS was called and they transported her here. Physical Examination: Vital signs are reviewed. HEENT exam is atraumatic. Heart is regular rate and rhythm. Lungs are clear. She has left anterior and left lower rib tenderness to palpation. Abdomen soft nontender. Back is nontender. Extremities and reveals right patellar tenderness. There is some mild ecchymosis. She has limited range of motion secondary to pain. The left hip also has pain with range of motion but no tenderness. Skin has no lacerations. GCS 15. She has equal strength and sensation bilaterally. Test Results: X-ray of the left hip reveals old pubic rami fractures. X-rays of the knee and ribs revealed no acute abnormalities Emergency Department Course and Treatment: Patient given IM morphine for pain control. X-rays reveal no evidence of any fractures. Patient will be discharged to use ice for any areas that are sore. I will give her a short course of Percocet for pain control at home. She will take Tylenol or ibuprofen as needed for mild to moderate pain. She will call her doctor for follow-up Treatment Plan: [] Disposition: Discharge Impression: Right knee contusion, left hip contusion, left rib contusion This note was generated with [employer] dictation software. It may contain incorrect words, spelling, and punctuation that were not noted in review of the chart prior to signing ED Disposition - Plan for ED Patient: Disposition: Home or Assisted Living Instructions: ED Mechanical Fall Prescriptions: Oxycodone HCl/Acetaminophen [Percocet 5/325] 1 tablet PO Q6H PRN PRN 3 Days #8 tablet PRN Reason: Pain Transmission Status: Received by [facility]/pharmacy #[id number] Referrals: Tj Campuzano Chi, MD [Primary Care Provider] -
[2020-04-27] MEDS: Morphine 4 MG/ML Syringe IM (13:31)
[2020-04-27 13:32] VITALS: O2SAT 99
[2020-04-27 14:04] VITALS: BP 182/76; RESP 18; O2SAT 99
[2020-04-27 15:53] VITALS: BP 153/79; PULSE 84; RESP 18
== END 2020-04-27 16:01 | disposition home or self-care (01) ==
PROVIDERS: Emergency Provider Emergency Medicine; PCP Family Medicine Geriatric Medicine
DX: S20.212A Contusion of left front wall of thorax, initial encounter (principal); S70.02XA Contusion of left hip, initial encounter; S80.01XA Contusion of right knee, initial encounter; E03.9 Hypothyroidism, unspecified; F32.9 Major depressive disorder, single episode, unspecified; Z79.899 Other long term (current) drug therapy; W18.30XA Fall on same level, unspecified, initial encounter; Y93.E9 Activity, other interior property and clothing maintenance; Y92.008 Other place in unspecified non-institutional (private) residence as the place of occurrence of the external cause; Y99.8 Other external cause status
CPT/HCPCS: 71101; 73502; 73562; 96372; 99285

== ENCOUNTER → 2020-05-09 | Outpatient (CLI) | payer MEDICARE, SELFPAY ==
[2020-04-27 13:14] VITALS: BMI 26.4
== END | disposition home or self-care (01) ==
LOC: POLAB3 16:36 → LABSPEC 16:37
PROVIDERS: PCP Family Medicine Geriatric Medicine; Visit Provider Family Medicine Geriatric Medicine
DX: N39.0 Urinary tract infection, site not specified (principal)
CPT/HCPCS: 87086; 87088

== ENCOUNTER → 2020-05-29 | Outpatient (CLI) | payer MEDICARE, SELFPAY | END | disposition home or self-care (01) | LOC: MTDU 17:20 | PROVIDERS: PCP Family Medicine Geriatric Medicine; Referring Provider Family Medicine Geriatric Medicine; Visit Provider Family Medicine Geriatric Medicine | DX: R06.89 Other abnormalities of breathing (principal) | CPT/HCPCS: 87635; C9803; U0003 ==

== ENCOUNTER → 2020-06-03 | Outpatient (CLI) | payer MEDICARE, SELFPAY ==
[2019-10-23 14:51] VITALS: BMI 25.1
--- NOTE | 2020-06-03 12:17 | NEURO_ITS ---
NCS and/or EMG Patient Report Ordering Doctor: Tj Campuzano Chi DATE OF SERVICE: 06/03/20 Indication: Several years of lower extremity symptoms. She has difficulty articulating the exact symptom. She denies numbness, tingling, esvin weakness. She reports they don't feel right. She had a fall several weeks ago, though she is unable to explain the detail of the event. Findings: Nerve conduction studies were performed in the right and left lower extremities. The right peroneal motor study recording the extensor digitorum brevis showed a slightly reduced amplitude, normal distal latency and normal conduction velocity. No conduction block was present across the fibular neck. The right tibial motor study recording the abductor hallucis brevis showed a normal amplitude, normal distal latency and normal conduction velocity. Right sural sensory response showed a normal amplitude and conduction velocity. Right superficial peroneal sensory response showed a normal amplitude and conduction velocity. The left peroneal motor study recording the extensor digitorum brevis showed a slightly reduced amplitude, normal distal latency and normal conduction velocity. No conduction block was present across the fibular neck. The left peroneal motor study recording the tibialis anterior showed a borderline amplitude and normal conduction velocity. No conduction block was present across the fibular neck. The left tibial motor study recording the abductor hallucis brevis showed a normal amplitude, normal distal latency and normal conduction velocity. Left sural sensory response was absent. Left superficial peroneal sensory response showed a normal amplitude and conduction velocity. Needle EMG of the left lower extremity and lumbar paraspinal muscles was performed. No denervation was present in any muscle. All motor unit morphology, activation and recruitment patterns were normal (tibialis anterior, medial gas trocnemius, extensor hallucis longus, vastus medialis, tensor fascia dallin). Motor units in the lumbar paraspinal muscles were mildly polyphasic, but otherwise unremarkable. Impression: This is an essentially normal study. There is no electrophysiologic evidence of lumbosacral radiculopathy or peripheral neuropathy in the left lower extremity. There is no evidence of peripheral neuropathy in the right lower extremity. Please note: the electrodiagnosis of radiculopathy is made on the basis of excluding peripheral nerve lesions on nerve conduction studies and the needle EMG demonstrating denervation and/or reinnervation in the distribution of one or more nerve roots (i.e., acute and/or chronic axonal loss). Thus, electrodiagnostic studies are insensitive in detecting radiculopathy in the ab sence of axonal loss (e.g., in the setting of compression resulting in intermittent ischemia or mechanical deformation; or demyelination without axonal loss). Thus, clinical correlation is required in the interpretation of this negative electrodiagnostic study for radiculopathy. Finally, the absent left sural sensory response is likely to be technical in nature as there are no other associated finding and the patient denies sensory disturbance within this distribution. Ben Mars D.O.
== END | disposition home or self-care (01) ==
LOC: PSN 08:57
PROVIDERS: PCP Family Medicine Geriatric Medicine; Referring Provider Family Medicine Geriatric Medicine; Visit Provider Family Medicine Geriatric Medicine
DX: R20.0 Anesthesia of skin (principal)
CPT/HCPCS: 95886; 95911

== ENCOUNTER → 2020-06-05 | Outpatient (CLI) | payer MEDICARE, SELFPAY ==
[2019-10-23 14:51] VITALS: BMI 25.1
--- NOTE | 2020-06-05 14:30 | NEURO ---
NCS and/or EMG Patient Report Ordering Doctor: Tj Campuzano Chi DATE OF SERVICE: 06/05/20 Maryanne Zendejas presents for electrodiagnostic testing of the upper limbs. She reports pain primarily in the right arm, below the shoulder. She denies significant numbness and tingling. Electrodiagnostic findings: Prolonged right median motor latency with normal amplitude and reduced conduction velocity. Normal left median motor response. Normal ulnar motor response bilaterally. Borderline prolonged right median F wave. Prolonged median sensory latency at the wrist is noted bilaterally. Normal ulnar and radial sensory responses. On needle EMG, all muscles tested in the upper limbs, as well as the cervical paraspinals, showed no evidence of denervation with normal motor unit action potentials. Electrodiagnostic impression: This is an abnormal study in the upper limbs. 1. 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 However, the patient does not demonstrate clinical evidence or symptoms of carpal tunnel syndrome. 2. No electrodiagnostic evidence is noted for cervical radiculopathy. If there are any further questions, please do not hesitate to contact me.
== END | disposition home or self-care (01) ==
LOC: PSN 09:03
PROVIDERS: PCP Family Medicine Geriatric Medicine; Referring Provider Family Medicine Geriatric Medicine; Visit Provider Family Medicine Geriatric Medicine
DX: R20.0 Anesthesia of skin (principal)
CPT/HCPCS: 95886; 95912

== ENCOUNTER → 2020-06-06 | Outpatient (CLI) | payer MEDICARE, SELFPAY ==
[2019-10-23 14:51] VITALS: BMI 25.1
[2020-06-06 12:41] LABS: Albumin, Serum 3.4 g/dL (3.2-5.0); BUN 25 mg/dL (7-18); BUN/Creat Ratio 21.6 RATIO (10-20); Chloride 107 mmol/L (98-107); Creatinine, Serum 1.16 mg/dL (0.55-1.02); EST Glomerular Filtration Rate 48 mL/min (>60); Est Glom Filt Rate - Afr Amer 58 mL/min (>60); Glucose 90 mg/dL (74-106); Potassium 4.5 mmol/L (3.5-5.1); Sodium Level 138 mmol/L (136-145)
== END | disposition home or self-care (01) ==
LOC: POLAB3 09:30
PROVIDERS: PCP Family Medicine Geriatric Medicine; Visit Provider Internal Medicine Nephrology
DX: N18.30 Chronic kidney disease, stage 3 unspecified (principal)
CPT/HCPCS: 36415; 80069

== ENCOUNTER → 2020-06-28 10:12 | Outpatient (CLI) | payer MEDICARE, SELFPAY ==
[2020-06-07 08:34] VITALS: BMI 26.2
--- NOTE | 2020-06-28 10:16 | EKG12_ITS ---
Test Reason : PRE OP Blood Pressure : / mmHG Vent. Rate : 062 BPM Atrial Rate : 062 BPM P-R Int : 154 ms QRS Dur : 084 ms QT Int : 374 ms P-R-T Axes : 041 -51 026 degrees QTc Int : 379 ms Normal sinus rhythm Left anterior fascicular block Abnormal ECG Confirmed by STAN MCCALL, SHERIE ([id number]), photograph editor EBER TABOR ([id number]) on 07/03/2020 9:37:29 AM Referred By: Yomi Narvaez Confirmed By:SHERIE PIERCE MD
[2020-06-28 11:20] LABS: Hematocrit 38.6 % (37-47); Hemoglobin 12.3 g/dL (12.0-15.0); Mean Corp Hgb Conc 31.9 g/dL (32-36); Mean Corpuscular Hgb 31.1 pg (27.0-32.0); Mean Corpuscular Volume 97.7 fL (81-99); Mean Platelet Vol. 9.8 fl (6.2-12.0); Platelet Count 170 K/mm3 (150-450); RBC Distribution Width CV 13.9 % (11.6-14.6); RBC Distribution Width SD 50.2 fl (35.1-43.9); Red Blood Count 3.95 M/mm3 (4.2-5.4); White Blood Count 3.8 K/mm3 (4.4-11.0)
[2020-06-28 12:01] LABS: Anion Gap 4 (5-15); BUN 26 mg/dL (7-18); BUN/Creat Ratio 24.3 RATIO (10-20); Calcium,Total 9.1 mg/dL (8.5-10.1); Chloride 106 mmol/L (98-107); Creatinine, Serum 1.07 mg/dL (0.55-1.02); EST Glomerular Filtration Rate 53 mL/min (>60); Est Glom Filt Rate - Afr Amer 64 mL/min (>60); Glucose 98 mg/dL (74-106); Potassium 4.5 mmol/L (3.5-5.1); Sodium Level 140 mmol/L (136-145)
== END ==
PROVIDERS: PCP Family Medicine Geriatric Medicine; Referring Provider Urology; Visit Provider Urology
DX: Z01.812 Encounter for preprocedural laboratory examination (principal)
CPT/HCPCS: 36415; 80048; 85027; 87635; 93005; C9803; U0003

== ENCOUNTER → 2020-09-04 10:53 | Outpatient (CLI) | payer MEDICARE, SELFPAY ==
[2020-09-04 11:34] LABS: Absolute Lymphocyte Count 1.31 X10^3/uL (0.83-4.51); Absolute Neutrophil Count 3.1 X10^3/uL (2.0-7.7); Basophil# 0.03 X10^3/uL; Basophil% 0.6 % (0-1); Eosinophil# 0.18 X10^3/uL; Eosinophils% 3.5 % (0-5); Hematocrit 40.7 % (37-47); Lymphocyte # 1.31 X10^3/ul (4.0); Lymphocyte % 25.7 % (19-41); Mean Corp Hgb Conc 31.9 g/dL (32-36); Mean Corpuscular Hgb 30.4 pg (27.0-32.0); Mean Corpuscular Volume 95.1 fL (81-99); Mean Platelet Vol. 10.3 fl (6.2-12.0); Monocyte# 0.46 X10^3/uL; NRBC Flagged by Analyzer 0 % (0-5); Neutrophil % 60.8 % (47-70); Platelet Count 188 K/mm3 (150-450); RBC Distribution Width CV 13.6 % (11.6-14.6); RBC Distribution Width SD 47.8 fl (35.1-43.9); Red Blood Count 4.28 M/mm3 (4.2-5.4); White Blood Count 5.1 K/mm3 (4.4-11.0)
[2020-09-04 11:44] LABS: Vitamin D,25 Hydroxy 32.5 ng/mL
[2020-09-04 11:49] LABS: AST(SGOT) 23 U/L (15-37); Alanine Aminotransfer ALT/SGPT 25 U/L (13-56); Albumin, Serum 3.5 g/dL (3.2-5.0); Alkaline Phosphatase 64 U/L (45-117); Anion Gap 4 (5-15); BUN 24 mg/dL (7-18); BUN/Creat Ratio 20.2 RATIO (10-20); Calcium,Total 8.9 mg/dL (8.5-10.1); Chloride 110 mmol/L (98-107); Creatinine, Serum 1.19 mg/dL (0.55-1.02); EST Glomerular Filtration Rate 46 mL/min (>60); Est Glom Filt Rate - Afr Amer 56 mL/min (>60); Globulin 3.4 g/dL (2.2-4.2); Glucose 103 mg/dL (74-106); Potassium 4.5 mmol/L (3.5-5.1); Protein, Total 6.9 g/dL (6.4-8.2); Sodium Level 140 mmol/L (136-145); Thyroid Stim Hormone (TSH) 2.69 uIU/mL (0.358-3.74)
== END ==
PROVIDERS: PCP Family Medicine Geriatric Medicine; Visit Provider Family Medicine Geriatric Medicine
DX: E55.9 Vitamin D deficiency, unspecified (principal); R53.83 Other fatigue
CPT/HCPCS: 36415; 80053; 82306; 84443; 85025

== ENCOUNTER → 2020-09-06 13:06 | Outpatient (CLI) | payer MEDICARE, SELFPAY ==
--- NOTE | 2020-09-06 13:13 | US_ITS ---
STUDY: SUPERFICIAL ULTRASOUND - RIGHT ARM. REASON FOR EXAM: Female, 79 years old. RT UPPER ARM LUMP TECHNIQUE: A superficial ultrasound was performed with real-time and static sandoval-scale imaging. COMPARISON: None. FINDINGS: The right upper arm was examined. No sonographic abnormality is seen. US/Ext Non Vasc Limited/Soft Tiss IMPRESSION: No sonographic abnormality is seen. Electronically Signed: Tico Fitzpatrick, at 14:54 EST , Service support ,
== END ==
PROVIDERS: PCP Family Medicine Geriatric Medicine; Visit Provider Family Medicine Geriatric Medicine
DX: R22.9 Localized swelling, mass and lump, unspecified (principal)
CPT/HCPCS: 76882

== ENCOUNTER 2020-10-17 10:27 | Outpatient (RCR) | payer MEDICARE, SELFPAY | END 2020-10-17 23:59 | LOC: IMMUN 10:27 | PROVIDERS: PCP Family Medicine Geriatric Medicine; Referring Provider Family Medicine; Visit Provider Family Medicine | DX: Z23 Encounter for immunization (principal) | CPT/HCPCS: 0011A; 0012A ==

== ENCOUNTER → 2020-10-29 14:41 | Outpatient (CLI) | payer MEDICARE, SELFPAY ==
--- NOTE | 2020-10-29 14:44 | RAD_ITS ---
STUDY: X-RAY - CERVICAL SPINE REASON FOR EXAM: Female, 80 years old. CERVICAL RADICULOPATHY TECHNIQUE: 3 view(s) of the cervical spine were obtained. COMPARISON: None FINDINGS: There are degenerative changes of the anterior atlantoaxial articulation. Normal odontoid process. Normal cervical lordosis. There is multi-level endplate spondylosis. There is multi-level degenerative disc disease with multilevel disc space narrowing. Normal visualized intervertebral neuroforamina. The soft tissue structures are unremarkable. RAD/Cerv Spine 2 or 3 Views IMPRESSION: Disc space narrowing and spondylosis at the C3-C4, C4-C5, C5-C6 and C6-C7 levels. Electronically Signed: Tico Fitzpatrick MD at 15:52 EST , Service support ,
== END ==
PROVIDERS: PCP Family Medicine Geriatric Medicine; Referring Provider Family Medicine Geriatric Medicine; Visit Provider Family Medicine Geriatric Medicine
DX: G54.2 Cervical root disorders, not elsewhere classified (principal)
CPT/HCPCS: 72040

== ENCOUNTER → 2020-11-20 08:55 | Outpatient (CLI) | payer MEDICARE, SELFPAY ==
[2020-06-07 08:34] VITALS: BMI 26.2
--- NOTE | 2020-11-20 13:02 | CPS ---
Patient arrived for NCS/EMG testing. Prior to arrival, tech pulled patient's previous NCS/EMG raw data and reports (06/03/20 and 06/05/20). Today's visit diagnosis code was the same used as from the 2019 visits. This tech contacted ordering physician's office to determine why we are repeating the same test. Uzma, executive vice president and chief financial officer, read the patient's notes that stated the patient's symptoms are worse, worse, worse. Pain is increasing and unable to use her right arm. There was no mention of recent NCS/EMG results in the notes. Explained that the results from June 05, 2020 NCS/EMG testing, there were abnormal findings. Asked if the patient has received any treatment, such as cortisone injection, PT, or has the patient been encouraged to use any type of splint or brace to help her symptoms. Uzma denied there to be any documentation of that. Spoke with the patient, once arrived and in exam room, regarding the reason for the study. The patient explained her pain/symptoms. She stated she does have use of her right arm, she just experiences intermittent pain with certain movements. 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 She doesn't recall Dr. Campuzano discussing those results with her. Since then, her pain has increased, but she has not had any type of treatment to help relieve the pain. The patient requested to not do the test today, and will discuss treatment options, and possibly seeing an orthopedic to follow up on the results. Repeating the test at this time did not seem to be supported. Left a message on the nurse voicemail explaining the above.
== END ==
PROVIDERS: PCP Family Medicine Geriatric Medicine; Referring Provider Family Medicine Geriatric Medicine; Visit Provider Family Medicine Geriatric Medicine
DX: R20.2 Paresthesia of skin (principal)

== ENCOUNTER → 2021-02-13 09:49 | Outpatient (CLI) | payer MEDICARE, SELFPAY ==
[2020-06-07 08:34] VITALS: BMI 26.2
[2021-02-13 11:58] LABS: Absolute Lymphocyte Count 1.15 X10^3/uL (0.83-4.51); Absolute Neutrophil Count 1.9 X10^3/uL (2.0-7.7); Basophil# 0.03 X10^3/uL; Basophil% 0.8 % (0-1); Eosinophil# 0.21 X10^3/uL; Eosinophils% 5.6 % (0-5); Hematocrit 39.7 % (37-47); Hemoglobin 12.5 g/dL (12.0-15.0); Lymphocyte # 1.15 X10^3/ul (0.83-4.51); Lymphocyte % 30.7 % (19-41); Mean Corp Hgb Conc 31.5 g/dL (32-36); Mean Corpuscular Hgb 29.5 pg (27.0-32.0); Mean Corpuscular Volume 93.6 fL (81-99); Mean Platelet Vol. 10.6 fl (6.2-12.0); Monocyte# 0.41 X10^3/uL; Monocyte% 10.9 % (0-10); NRBC Flagged by Analyzer 0 % (0-5); Neutrophil # 1.94 X10^3/uL (2.7-7.7); Neutrophil % 51.7 % (47-70); Platelet Count 209 K/mm3 (150-450); RBC Distribution Width CV 13.7 % (11.6-14.6); RBC Distribution Width SD 47.1 fl (35.1-43.9); Red Blood Count 4.24 M/mm3 (4.2-5.4); White Blood Count 3.8 K/mm3 (4.4-11.0)
[2021-02-13 12:14] LABS: AST(SGOT) 20 U/L (15-37); Alanine Aminotransfer ALT/SGPT 23 U/L (13-56); Albumin, Serum 3.4 g/dL (3.2-5.0); Alkaline Phosphatase 91 U/L (45-117); Anion Gap 7 (5-15); BUN 19 mg/dL (7-18); BUN/Creat Ratio 16.7 RATIO (10-20); Calcium,Total 9.5 mg/dL (8.5-10.1); Chloride 109 mmol/L (98-107); Cholesterol 247 mg/dL (200); Creatinine, Serum 1.14 mg/dL (0.55-1.02); EST Glomerular Filtration Rate 49 mL/min (>60); Est Glom Filt Rate - Afr Amer 59 mL/min (>60); Globulin 3.5 g/dL (2.2-4.2); Glucose 90 mg/dL (74-106); High Density Lipoprotein 81 mg/dL; Phosphorus 3.2 mg/dL (2.5-4.9); Potassium 4.9 mmol/L (3.5-5.1); Protein, Total 6.9 g/dL (6.4-8.2); Sodium Level 141 mmol/L (136-145); Thyroid Stim Hormone (TSH) 3.75 uIU/mL (0.358-3.74); Triglycerides 98 mg/dL; Uric Acid 5.2 mg/dL (2.6-6.0); Very Low Density Lipoprotein 20 mg/dL (5-40)
== END ==
PROVIDERS: PCP Family Medicine Geriatric Medicine; Visit Provider Internal Medicine Nephrology
DX: N18.31 Chronic kidney disease, stage 3a (principal); E78.5 Hyperlipidemia, unspecified; R53.83 Other fatigue; E55.9 Vitamin D deficiency, unspecified; M10.9 Gout, unspecified
CPT/HCPCS: 36415; 80053; 80061; 84100; 84443; 84550; 85025

== ENCOUNTER → 2021-07-03 16:25 | Outpatient (CLI) | payer MEDICARE, SELFPAY ==
--- NOTE | 2021-07-03 16:34 | MRI_ITS ---
STUDY: MR Brain W/O Contrast 07/03/2021 5:42 PM REASON FOR EXAM: Female, 80 years old. ALZHEIMER''S COMPARISON: 2.13.18CT TECHNIQUE: Standardized multiplanar fat and water weighted pulse sequences were obtained. MR Brain W/O Contrast FINDINGS: There is mild cerebral atrophy with widening of the extra-axial spaces and ventricular dilatation. There are a limited number of small white matter hyperintensities, distributed throughout the deep white matter tracts of the cerebral hemispheres, consistent with mild chronic white matter ischemic changes. There is mild prominence of the vermian folia, consistent with atrophy of the vermis. The cerebellar hemispheres are normal. Normal bilateral basal ganglia. Normal thalami. There is no extra-axial fluid accumulation. Normal flow voids within the major intracranial circulation suggesting patency by spin echo criteria. Normal sella turcica, pituitary gland, infundibular stalk, optic chiasm and hypothalamus. Normal tectal plate and pineal gland. Normal midbrain, todd and medulla. Normal basal cisterns. Normal bilateral temporal bones. Normal bilateral internal auditory canals. No demonstrated orbital abnormality, within the constraints of a routine brain study. Normal visualized paranasal sinuses. Normal calvarium and skull base. Normal visualized soft tissue structures. Normal visualized upper cervical spine. Aspect score 10 IMPRESSION: (NOT LISTED IN ORDER OF SIGNIFICANCE) There are no acute intracranial findings. Electronically Signed: Grey Lund MD at 17:44 EDT , Service support , MRI/Brain without Contrast
== END ==
PROVIDERS: PCP Family Medicine Geriatric Medicine; Visit Provider Family Medicine Geriatric Medicine
DX: G30.9 Alzheimer's disease, unspecified (principal)
CPT/HCPCS: 70551

== ENCOUNTER → 2021-07-07 11:59 | Outpatient (CLI) | payer MEDICARE, SELFPAY ==
--- NOTE | 2021-07-07 12:01 | RAD_ITS ---
PROCEDURE: Fluoroscopic guided Lumbar Puncture. DATE: 07/07/2021. CLINICAL INDICATION: Early onset of Alzheimer''s. PHYSICIAN: Tico Fitzpatrick M.D. MEDICATIONS: 1% lidocaine administered subcutaneously for local anesthesia. ACCESS SITE: Lower posterior back. NEEDLE: 22-gauge spinal needle. SPECIMEN: Approximately 13 mL clear]CSF fluid. FLUOROSCOPY TIME (if supplied): (0:30) minutes/seconds COMPLICATIONS: None immediate. The risks, benefits, and alternatives to the procedure were explained to the patient. The specific risks of bleeding, infection, and neurovascular injury were detailed and accepted. Witnessed informed consent was obtained. The patient was placed on the fluoroscopic table in the prone position. The level for needle entry was determined and marked. The overlying skin was cleaned and prepped in the usual sterile fashion. 2% lidocaine was administered subcutaneously for local anesthesia. Under fluoroscopic guidance a 22-gauge spinal needle was advanced. The thecal sac was entered at the L3- L4 vertebral level. The inner stylet was removed. There was spontaneous flow of clear CSF fluid. The patient was placed in a reversed Trendelenburg position. Approximately 13 mL of cerebrospinal fluid was collected using gravity. The specimen was collected and submitted to the laboratory for further evaluation. The needle was withdrawn,. Hemostasis was achieved and a sterile dressing placed. The patient tolerated the procedure well without any immediate complications. The patient was placed supine with head elevated and returned to the floor in stable condition. RAD/Dx Lumbar Puncture w/IMG Guide IMPRESSION: Successful fluoroscopic-guided lumbar puncture. Electronically Signed: Tico Fitzpatrick MD at 14:08 EST , Service support ,
[2021-07-07 12:59] VITALS: BP 157/72; PULSE 61; RESP 14; TEMP 36.9; O2SAT 97; BMI 23.8
[2021-07-07] MEDS: Lidocaine 2% (5ml sdv) 5 ML VIAL.MPF INFILT (13:30)
[2021-07-07] MEDS: Acetaminophen 500 MG Tablet 1000 MG PO (14:26)
[2021-07-07 14:45] VITALS: BP 118/51; PULSE 71; RESP 18; O2SAT 100
== END | disposition home or self-care (01) ==
PROVIDERS: PCP Family Medicine Geriatric Medicine; Referring Provider Family Medicine Geriatric Medicine; Visit Provider Family Medicine Geriatric Medicine
DX: G30.9 Alzheimer's disease, unspecified (principal)
CPT/HCPCS: 62328

== ENCOUNTER → 2021-08-19 09:59 | Outpatient (CLI) | payer MEDICARE, SELFPAY ==
[2021-08-19 12:17] LABS: Absolute Neutrophil Count 1.8 X10^3/uL (2.0-7.7); Basophil# 0.05 X10^3/uL; Basophil% 1.3 % (0-1); Eosinophil# 0.17 X10^3/uL; Eosinophils% 4.3 % (0-5); Hematocrit 40.1 % (37-47); Hemoglobin 13.2 g/dL (12.0-15.0); Mean Corp Hgb Conc 32.9 g/dL (32-36); Mean Corpuscular Hgb 30.8 pg (27.0-32.0); Mean Corpuscular Volume 93.5 fL (81-99); Mean Platelet Vol. 10.5 fl (6.2-12.0); Monocyte# 0.34 X10^3/uL; Monocyte% 8.5 % (0-10); NRBC Flagged by Analyzer 0 % (0-5); Neutrophil # 1.84 X10^3/uL (2.7-7.7); Neutrophil % 45.9 % (47-70); Platelet Count 165 K/mm3 (150-450); RBC Distribution Width CV 14.5 % (11.6-14.6); Red Blood Count 4.29 M/mm3 (4.2-5.4)
[2021-08-19 12:37] LABS: AST(SGOT) 23 U/L (15-37); Alanine Aminotransfer ALT/SGPT 30 U/L (13-56); Albumin, Serum 3.7 g/dL (3.2-5.0); Alkaline Phosphatase 63 U/L (45-117); Anion Gap 7 (5-15); BUN 21 mg/dL (7-18); BUN/Creat Ratio 17.6 RATIO (10-20); Chloride 107 mmol/L (98-107); Creatinine, Serum 1.19 mg/dL (0.55-1.02); EST Glomerular Filtration Rate 46 mL/min (>60); Est Glom Filt Rate - Afr Amer 56 mL/min (>60); Globulin 3.7 g/dL (2.2-4.2); Glucose 102 mg/dL (74-106); Potassium 4.6 mmol/L (3.5-5.1); Protein, Total 7.4 g/dL (6.4-8.2); Sodium Level 139 mmol/L (136-145); Thyroid Stim Hormone (TSH) 2.39 uIU/mL (0.358-3.74); Uric Acid 5.3 mg/dL (2.6-6.0)
[2021-08-19 12:48] LABS: Vitamin D,25 Hydroxy 33.7 ng/mL
== END ==
PROVIDERS: PCP Family Medicine Geriatric Medicine; Visit Provider Family Medicine Geriatric Medicine
DX: E55.9 Vitamin D deficiency, unspecified (principal); M10.9 Gout, unspecified; R53.83 Other fatigue
CPT/HCPCS: 36415; 80053; 82306; 84443; 84550; 85025

== ENCOUNTER → 2022-02-23 | Outpatient (CLI) | payer MEDICARE, SELFPAY ==
[2022-02-23 10:53] LABS: Absolute Lymphocyte Count 1.24 X10^3/uL (0.83-4.51); Absolute Neutrophil Count 2.1 X10^3/uL (2.0-7.7); Basophil# 0.03 X10^3/uL; Basophil% 0.8 % (0-1); Eosinophils% 5.1 % (0-5); Hematocrit 38.3 % (37-47); Hemoglobin 12.5 g/dL (12.0-15.0); Lymphocyte # 1.24 X10^3/ul (0.83-4.51); Lymphocyte % 31.4 % (19-41); Mean Corp Hgb Conc 32.6 g/dL (32-36); Mean Corpuscular Hgb 30.6 pg (27.0-32.0); Mean Corpuscular Volume 93.6 fL (81-99); Mean Platelet Vol. 10.5 fl (6.2-12.0); Monocyte# 0.33 X10^3/uL; Monocyte% 8.4 % (0-10); NRBC Flagged by Analyzer 0 % (0-5); Neutrophil # 2.14 X10^3/uL (2.7-7.7); Platelet Count 174 K/mm3 (150-450); RBC Distribution Width CV 14.2 % (11.6-14.6); RBC Distribution Width SD 48.2 fl (35.1-43.9); Red Blood Count 4.09 M/mm3 (4.2-5.4)
[2022-02-23 11:40] LABS: ALB/GLOB Ratio 1.1 RATIO (0.9-2.4); AST(SGOT) 22 U/L (15-37); Alanine Aminotransfer ALT/SGPT 18 U/L (13-56); Albumin, Serum 3.8 g/dL (3.2-5.0); Alkaline Phosphatase 65 U/L (45-117); Anion Gap 5 (5-15); BUN 23 mg/dL (7-18); BUN/Creat Ratio 21.1 RATIO (10-20); Calcium,Total 9.2 mg/dL (8.5-10.1); Chloride 110 mmol/L (98-107); Creatinine, Serum 1.09 mg/dL (0.55-1.02); EST Glomerular Filtration Rate 51 mL/min (>60); Est Glom Filt Rate - Afr Amer 62 mL/min (>60); Globulin 3.4 g/dL (2.2-4.2); Glucose 106 mg/dL (74-106); Potassium 4.2 mmol/L (3.5-5.1); Protein, Total 7.2 g/dL (6.4-8.2); Sodium Level 139 mmol/L (136-145); Thyroid Stim Hormone (TSH) 2.76 uIU/mL (0.358-3.74); Uric Acid 5.1 mg/dL (2.6-6.0)
== END | disposition home or self-care (01) ==
LOC: LAB 10:00
PROVIDERS: PCP Family Medicine Geriatric Medicine; Referring Provider Family Medicine Geriatric Medicine; Visit Provider Family Medicine Geriatric Medicine
DX: R53.83 Other fatigue (principal); M10.9 Gout, unspecified; E55.9 Vitamin D deficiency, unspecified
CPT/HCPCS: 36415; 80053; 82306; 84443; 84550; 85025

== ENCOUNTER → 2022-05-26 | Outpatient (CLI) | payer MEDICARE, SELFPAY ==
[2022-05-26 12:34] LABS: Absolute Lymphocyte Count 1.37 X10^3/uL (0.83-4.51); Absolute Neutrophil Count 2.4 X10^3/uL (2.0-7.7); Basophil# 0.05 X10^3/uL; Basophil% 1.1 % (0-1); Eosinophil# 0.19 X10^3/uL; Eosinophils% 4.3 % (0-5); Hematocrit 38.1 % (37-47); Hemoglobin 12.2 g/dL (12.0-15.0); Lymphocyte # 1.37 X10^3/ul (0.83-4.51); Lymphocyte % 31.1 % (19-41); Mean Corpuscular Hgb 30.4 pg (27.0-32.0); Mean Platelet Vol. 10.5 fl (6.2-12.0); Monocyte# 0.44 X10^3/uL; NRBC Flagged by Analyzer 0 % (0-5); Neutrophil # 2.35 X10^3/uL (2.7-7.7); Neutrophil % 53.3 % (47-70); Platelet Count 176 K/mm3 (150-450); RBC Distribution Width CV 14.4 % (11.6-14.6); RBC Distribution Width SD 50.2 fl (35.1-43.9); Red Blood Count 4.01 M/mm3 (4.2-5.4); White Blood Count 4.4 K/mm3 (4.4-11.0)
[2022-05-26 12:48] LABS: Vitamin D,25 Hydroxy 28.3 ng/mL
[2022-05-26 12:53] LABS: AST(SGOT) 29 U/L (15-37); Alanine Aminotransfer ALT/SGPT 34 U/L (13-56); Albumin, Serum 3.6 g/dL (3.2-5.0); Alkaline Phosphatase 77 U/L (45-117); Anion Gap 6 (5-15); BUN 25 mg/dL (7-18); BUN/Creat Ratio 21.6 RATIO (10-20); Calcium,Total 8.7 mg/dL (8.5-10.1); Chloride 110 mmol/L (98-107); Creatinine, Serum 1.16 mg/dL (0.55-1.02); EST Glomerular Filtration Rate 48 mL/min (>60); Est Glom Filt Rate - Afr Amer 58 mL/min (>60); Globulin 3.6 g/dL (2.2-4.2); Glucose 119 mg/dL (74-106); Potassium 4.8 mmol/L (3.5-5.1); Protein, Total 7.2 g/dL (6.4-8.2); Sodium Level 143 mmol/L (136-145); Thyroid Stim Hormone (TSH) 2.89 uIU/mL (0.358-3.74); Uric Acid 5.9 mg/dL (2.6-6.0)
== END | disposition home or self-care (01) ==
LOC: POLAB3 09:40
PROVIDERS: PCP Family Medicine Geriatric Medicine; Visit Provider Family Medicine Geriatric Medicine
DX: E55.9 Vitamin D deficiency, unspecified (principal); M10.9 Gout, unspecified; R53.83 Other fatigue
CPT/HCPCS: 36415; 80053; 82306; 84443; 84550; 85025

== ENCOUNTER → 2022-08-18 | Outpatient (CLI) | payer MEDICARE, SELFPAY ==
[2022-08-18 17:27] LABS: Absolute Lymphocyte Count 1.39 X10^3/uL (0.83-4.51); Absolute Neutrophil Count 2.9 X10^3/uL (2.0-7.7); Basophil# 0.03 X10^3/uL; Basophil% 0.6 % (0-1); Eosinophils% 2.1 % (0-5); Hematocrit 40.3 % (37-47); Hemoglobin 12.6 g/dL (12.0-15.0); Lymphocyte # 1.39 X10^3/ul (0.83-4.51); Lymphocyte % 29.3 % (19-41); Mean Corp Hgb Conc 31.3 g/dL (32-36); Mean Corpuscular Hgb 29.9 pg (27.0-32.0); Mean Corpuscular Volume 95.7 fL (81-99); Mean Platelet Vol. 10.8 fl (6.2-12.0); Monocyte# 0.32 X10^3/uL; Monocyte% 6.7 % (0-10); NRBC Flagged by Analyzer 0 % (0-5); Neutrophil % 61.1 % (47-70); Platelet Count 175 K/mm3 (150-450); RBC Distribution Width CV 14.6 % (11.6-14.6); RBC Distribution Width SD 50.9 fl (35.1-43.9); Red Blood Count 4.21 M/mm3 (4.2-5.4); White Blood Count 4.8 K/mm3 (4.4-11.0)
[2022-08-18 18:09] LABS: Vitamin D,25 Hydroxy 18.5 ng/mL
[2022-08-18 18:15] LABS: ALB/GLOB Ratio 1.1 RATIO (0.9-2.4); AST(SGOT) 28 U/L (15-37); Alanine Aminotransfer ALT/SGPT 36 U/L (13-56); Albumin, Serum 3.7 g/dL (3.2-5.0); Alkaline Phosphatase 77 U/L (45-117); Anion Gap 9 (5-15); BUN 24 mg/dL (7-18); BUN/Creat Ratio 21.2 RATIO (10-20); Chloride 111 mmol/L (98-107); Creatinine, Serum 1.13 mg/dL (0.55-1.02); EST Glomerular Filtration Rate 49 mL/min (>60); Est Glom Filt Rate - Afr Amer 59 mL/min (>60); Globulin 3.5 g/dL (2.2-4.2); Glucose 116 mg/dL (74-106); Potassium 4.4 mmol/L (3.5-5.1); Protein, Total 7.2 g/dL (6.4-8.2); Sodium Level 142 mmol/L (136-145); Thyroid Stim Hormone (TSH) 1.97 uIU/mL (0.358-3.74)
== END | disposition home or self-care (01) ==
LOC: POLAB3 14:40
PROVIDERS: PCP Family Medicine Geriatric Medicine; Visit Provider Family Medicine Geriatric Medicine
DX: E55.9 Vitamin D deficiency, unspecified (principal); R53.83 Other fatigue
CPT/HCPCS: 36415; 80053; 82306; 84443; 85025

== ENCOUNTER 2022-08-28 13:30 | Emergency (ER) | payer MEDICARE, SELFPAY ==
[2022-08-28 13:33] VITALS: PULSE 72; RESP 20; TEMP 36.4; O2SAT 99; BMI 25.4
[2022-08-28 14:13] LABS: Absolute Lymphocyte Count 1.34 X10^3/uL (0.83-4.51); Absolute Neutrophil Count 3.4 X10^3/uL (2.0-7.7); Basophil# 0.03 X10^3/uL; Basophil% 0.6 % (0-1); Eosinophil# 0.04 X10^3/uL; Eosinophils% 0.8 % (0-5); Hematocrit 41.6 % (37-47); Hemoglobin 13.8 g/dL (12.0-15.0); Lymphocyte # 1.34 X10^3/ul (0.83-4.51); Lymphocyte % 25.5 % (19-41); Mean Corp Hgb Conc 33.2 g/dL (32-36); Mean Corpuscular Hgb 30.3 pg (27.0-32.0); Mean Corpuscular Volume 91.2 fL (81-99); Mean Platelet Vol. 10.1 fl (6.2-12.0); Monocyte# 0.41 X10^3/uL; Monocyte% 7.8 % (0-10); NRBC Flagged by Analyzer 0 % (0-5); Neutrophil # 3.42 X10^3/uL (2.7-7.7); Neutrophil % 65.1 % (47-70); Platelet Count 187 K/mm3 (150-450); RBC Distribution Width CV 14.2 % (11.6-14.6); RBC Distribution Width SD 47.8 fl (35.1-43.9); Red Blood Count 4.56 M/mm3 (4.2-5.4); White Blood Count 5.3 K/mm3 (4.4-11.0)
[2022-08-28 14:14] LABS: Bacteria 0 SEEN /hpf (None Seen); Mucous, Urine 0 SEEN /hpf (<or=2+); Red Blood Cells-Urine 0 SEEN /hpf (0-5); Squamous Epithelial Cells - UA 0 SEEN /hpf (5-10); White Blood Cells 0 SEEN /hpf (0-5)
[2022-08-28 14:21] LABS: Color, Urine Straw (Yellow); Glucose, Dipstick Normal (Normal); Ketone-Dipstick Negative (Negative); Leukocyte Esterase-Dipstick Negative /ul (Negative); Nitrite-Dipstick Negative (Negative); Occult Blood-Urine Negative /ul (Negative); Protein-Dipstick Negative (Negative); Specific Gravity, Urine 1.005 (1.002-1.030); Urine Bilirubin Dipstick Negative (Negative); Urine Clarity Clear (Clear); Urine Urobilinogen Normal (Normal)
--- NOTE | 2022-08-28 14:25 | RAD_ITS ---
STUDY: X-RAY CHEST REASON FOR EXAM: Female, 81 years old. Dyspnea weakness labral breathing TECHNIQUE: Frontal and lateral radiograph of the chest COMPARISON: May 22, 2017 FINDINGS: There is increased opacity in the right middle lobe. There is no pneumothorax, pulmonary edema, pleural effusions or pneumonia. Heart size is normal. Osseous structures are intact. There is no gas under the diaphragms. RAD/Chest PA and Lateral IMPRESSION: Possibly right middle lobe pneumonia. Electronically Signed: Lazaro Thomas MD at 15:30 EST ,
[2022-08-28 14:26] LABS: Anion Gap 10 (5-15); BUN 25 mg/dL (7-18); BUN/Creat Ratio 22.9 RATIO (10-20); Calcium,Total 10.2 mg/dL (8.5-10.1); Chloride 110 mmol/L (98-107); Creatinine, Serum 1.09 mg/dL (0.55-1.02); EST Glomerular Filtration Rate 51 mL/min (>60); Est Glom Filt Rate - Afr Amer 62 mL/min (>60); Estimated Creatinine Clearance 34.95 ml/min; Glucose 109 mg/dL (74-106); Potassium 4.3 mmol/L (3.5-5.1); Sodium Level 140 mmol/L (136-145)
[2022-08-28 15:14] LABS: Lactic Acid 4.2 mmol/L (0.4-1.9)
--- NOTE | 2022-08-28 15:44 | EX.ED.DYSGE1 ---
HPI History of Present Illness Chief Complaint: General Illness Detail of Chief Complaint: Shortness of breath, shakes and disorientation Informant: patient and family Limited: dementia Onset/Context/Timing Onset: Today and Hours Context: Sudden Onset Timing: Intermittent Quality: Shortness of breath, shaking confusion greater than baseline Location: [facility] Current Severity: Mild Maximum Severity: Severe Worsened by: Unknown Relieved by: Nothing Associated Symptoms Associated Symptoms: Nothing Narrative Narrative: Patient is a pleasant 81-year-old woman who has history of dementia. She was at the [email or web address]. He is able to drive her self. She became can fused head shakes and became abruptly short of breath. Family member supplemented history. The [employer] was concerned because this was abnormal behavior for Maryanne. According to family she is more confused than normal. History is limited because of her dementia. She does endorse shortness of breath. She does not endorse mild abdominal discomfort with nausea. No history of diarrhea or vomiting. There is no history of PE reviewing her records. There is a history of breast cancer and DVT however. Prior similar symptoms: No Recent Illness/Hospitalization: No PFSH PFS Medical History (Updated 08/28/22 @ 16:[address] Fabrice Ahumada MD) DDD (degenerative disc disease), lumbar Depression Dyslipidemia Esophageal reflux Family history of colon cancer in father History of breast cancer History of ductal carcinoma in situ (DCIS) of breast History of DVT (deep vein thrombosis) History of fracture of right hip History of venous thrombosis and embolism HTN (hypertension) Migraine Osteopenia Sleep apnea Vitamin D deficiency Home Medications paroxetine HCl 10 mg tablet 20 mg PO DAILY 05/22/17 [History Last Taken 04/27/20] sumatriptan succinate 50 mg tablet 50 mg PO QHS PRN Sleep 05/22/17 [History Last Taken Unknown] levothyroxine 25 mcg tablet 25 mcg PO DAILY 04/27/20 [History Last Taken 04/27/20] mecobalamin (vitamin B12) 1,000 mcg chewable tablet 1,000 mcg PO DAILY 06/07/20 [History Last Taken Unknown] polyethylene glycol 400 0.25 % eye drops (Blink Gel Tears) % ophthalmic (eye) 06/07/20 [History Last Taken Unknown] trazodone 100 mg tablet 100 mg PO QHS PRN 06/07/20 [History Last Taken Unknown] betamethasone, augmented 0.05 % topical cream g topical 07/08/20 [History Last Taken Unknown] cholecalciferol (vitamin D3) 25 mcg (1,000 unit) tablet ea PO 07/08/20 [History Last Taken Unknown] diclofenac sodium 25 mg tablet,delayed release mg PO 07/08/20 [History Last Taken Unknown] galantamine 8 mg tablet mg PO 07/08/20 [History Last Taken Unknown] pantoprazole 40 mg tablet,delayed release mg PO 07/08/20 [History Last Taken Unknown] Allergy/AdvReac Type Severity Reaction Status Date / Time No Known Allergies Allergy Verified 08/28/22 13:32 Family History Father Colon cancer Surgical History History of colonoscopy (~12/2014) History of esophagogastroduodenoscopy (EGD) (~12/2014) History of hernia repair History of lumpectomy of right breast (~2002) History of tonsillectomy History of tubal ligation Social History (Updated 08/28/22 @ 15:[address] Fabrice Ahumada MD) household members: none Smoking Status: Never smoker substance use type: does not use ROS ROS ED Review of Systems ROS Unobtainable: due to mental status Constitutional Constitutional ED: Reports chills Eyes Eyes: Denies blurry vision or change in vision ENT ENT ED: Denies ear pain, rhinorrhea or sore throat Cardiovascular Cardiovascular: Denies chest pain, orthopnea or paroxysmal nocturnal dyspnea Respiratory/Chest Respiratory/Chest: Reports cough, dyspnea and dyspnea on exertion; Denies orthopnea or paroxysmal nocturnal dyspnea Gastrointestinal Gastrointestinal: Reports abdominal pain and nausea; Denies diarrhea or vomiting Genitourinary Genitourinary ED: Denies dysuria or hematuria Musculoskeletal Musculoskeletal: Denies arthralgias, back pain or neck pain Integumentary Denies Abrasions Neurologic Neurologic: Reports weakness; Denies headache(s) or paresthesias Psychiatric Psychiatric: Reports anxiety Hematologic/Lymphatic Hematologic/Lymphatic: Reports systems reviewed and no addt'l complaints, except as documented Allergic/Immunologic Allergic/Immunologic ED: Denies mouth swelling or tongue swelling EXAM Physical Exam Const Vital Signs: 08/28/22 13:33 08/28/22 13:39 Temperature 97.6 F L Temperature Source Temporal Pulse Rate 72 Respiratory Rate 20 H Respiratory Effort Short of Breath Respiratory Pattern Normal Pulse Ox 99 Oxygen Delivery Method Room Air Positive well nourished and well developed Constitutional Narrative: Patient seems slightly anxious. General Appearance ED: well developed; Negative for cyanotic, diaphoretic or pallor HEENT Reports dry mucous membranes HEENT Narrative: Head is atraumatic normocephalic. Ears normal. TMs normal. Nares patent. No drainage. Uvula midline. No erythema or exudate of posterior pharynx. No deviation of tongue with protrusion. Mouth ED: Yes dry mucous membranes Mouth: dry mucous membranes Eyes PERRL and EOMs intact bilaterally General Eye ED: Negative for pale conjunctiva or scleral icterus Neck no lymphadenopathy, supple and no JVD Chest Wall inspection of chest normal and palpation of chest normal Resp No normal respiratory effort and clear to auscultation bilaterally Cardio regular rate, regular rhythm, S1 normal heart sound, S2 normal heart sound and no murmurs GI no masses; Negative for non-tender, non-distended or hepatosplenomegaly Inspection: abdominal distention Auscultation: hypoactive bowel sounds Palpation: soft and tender other (Diffusely may be greater left lower quadrant) Narrative: External telemetry is normal. Back/Spine no CVA tenderness Cervical Spine: Negative for cervical spine tenderness Thoracic Spine / Upper Back: Negative for thoracic spinal tenderness Lumbar Spine / Lower Back: Negative for lumbar spinal tenderness Extremity normal to inspection General Extremety ED: Negative for edema or tenderness General Extremity: Negative for edema Neuro No oriented x3, CN's II-XII intact bilaterally and no sensory deficits noted Sensorium / Orientation: alert and orientation impaired Motor Exam: strength 5/5 throughout Psych Negative for mental status grossly normal Mood & Affect: anxious; Negative for depressed Skin no rashes or lesions noted, no wounds and No skin turgor normal General Skin Exam: Negative for jaundice or pallor MDM MDM MDM Narrative Medical decision making narrative: In light of abrupt onset of shortness of breath with history of DVT and breast cancer need to rule out pulmonary embolus, also need to rule out pulmonary cause versus cardiac cause. EKG, chest x-ray and appropriate blood work was obtained. White count and differential normal. Basic metabolic panel reveals mild renal insufficiency with a GFR of 51 and creatinine of 1.09. Lactate elevated 4.2. UA is negative chest x-ray reveals haziness on the right. Uncertain what this may represent. There may be a nodule near the inferior portion of the scapula on the chest x-ray, right side. In light of a normal CTA and ABG that reveals acute respiratory alkalosis due to hyperventilation the cause of her lactic acidosis is hyperventilation and this is an anxiety reaction. Lab Data Attestation: I reviewed the patient's lab results. Labs: Laboratory Results - last 24 hr 08/28/22 08/28/22 08/28/22 14:06 14:06 14:06 WBC 5.3 RBC 4.56 Hgb 13.8 Hct 41.6 MCV 91.2 MCH 30.3 MCHC 33.2 RDW Std Deviation 47.8 H RDW Coeff of Nicki 14.2 Plt Count 187 MPV 10.1 Immature Gran % (Auto) 0.200 Neut % (Auto) 65.1 Lymph % (Auto) 25.5 Real % (Auto) 7.8 Eos % (Auto) 0.8 Baso % (Auto) 0.6 Absolute Neuts (auto) 3.4 Absolute Lymphs (auto) 1.34 Nucleated RBC % 0 Sodium 140 Potassium 4.3 Chloride 110 H Carbon Dioxide 20.0 L Anion Gap 10 BUN 25 H Creatinine 1.09 H Estim Creat Clear Calc 34.95 Est GFR (MDRD) Af Amer 62 Est GFR (MDRD) Non-Af 51 L BUN/Creatinine Ratio 22.9 H Glucose 109 H Lactic Acid 4.2 H* Calcium 10.2 H Urine Color Urine Clarity Urine pH Ur Specific [place] Urine Protein Urine Glucose (UA) Urine Ketones Urine Occult Blood Urine Nitrite Urine Bilirubin Urine Urobilinogen Ur Leukocyte Esterase Urine RBC Urine WBC Ur Squamous Epith Cells Urine Bacteria Urine Mucus 08/28/22 14:10 WBC RBC Hgb Hct MCV MCH MCHC RDW Std Deviation RDW Coeff of Nicki Plt Count MPV Immature Gran % (Auto) Neut % (Auto) Lymph % (Auto) Real % (Auto) Eos % (Auto) Baso % (Auto) Absolute Neuts (auto) Absolute Lymphs (auto) Nucleated RBC % Sodium Potassium Chloride Carbon Dioxide Anion Gap BUN Creatinine Estim Creat Clear Calc Est GFR (MDRD) Af Amer Est GFR (MDRD) Non-Af BUN/Creatinine Ratio Glucose Lactic Acid Calcium Urine Color Straw Urine Clarity Clear Urine pH 7.0 Ur Specific [place] 1.005 Urine Protein Negative Urine Glucose (UA) Normal Urine Ketones Negative Urine Occult Blood Negative Urine Nitrite Negative Urine Bilirubin Negative Urine Urobilinogen Normal Ur Leukocyte Esterase Negative Urine RBC 0 SEEN Urine WBC 0 SEEN Ur Squamous Epith Cells 0 SEEN Urine Bacteria 0 SEEN Urine Mucus 0 SEEN ABG Data ABG results: ABG 08/28/22 15:57 Specimen Type ART Sample Site L Radial pH 7.63 H* Bicarbonate Actual 18.2 L Total CO2 19 Base Excess -3 L O2 Saturation 99 ABG pCO2 17.3 L* ABG pO2 108 H Saul Test Positive O2 Delivery Device Room Air Crit Call To/Read Back Yes Radiography Chest X-Ray - ED: 2 View and Read by ED Physician (Chronic changes. Haziness right side. Cardiac silhouette and size unremarkable. Perihilar region unremarkable. Ostia structures are unremarkable. There may be a nodule noted peripheral right midlung field versus scapula. Since patient has history of VTE with tachypnea lactic acidosis will obta) Diagnostic Testing: Clinical Impression(s) from Imaging Studies Chest X-Ray 08/28/22 14:25 IMPRESSION: Possibly right middle lobe pneumonia. Electronically Signed: Lazaro Thomas MD at 15:30 EST , Chest CTA 08/28/22 15:47 IMPRESSION: No acute cardiopulmonary pathology. No evidence for pulmonary embolus. Incidental finding of asymmetric prominence of the right breast density of uncertain significance. Clinical correlation recommended. Electronically Signed: Ty Bob MD at 16:33 EST , Discharge Plan Triage Chief Complaint: General Illness Other Complaint: Anxiety ED Provider: Fabrice Ahumada Dx/Rx/DC Orders Clinical Impression: Acute hyperventilation syndrome, Acute respiratory alkalosis, Acidosis, lactic, Anxiety reaction Instructions: ED Anxiety Reaction, ED Hyperventilation Syndrome Prescriptions: No Action trazodone 100 mg tablet 100 mg PO QHS PRN mecobalamin (vitamin B12) 1,000 mcg tablet,chewable 1,000 mcg PO DAILY Blink Gel Tears 0.25 % drops OPHTHALMIC galantamine 8 mg tablet PO diclofenac sodium 25 mg tablet,delayed release (DR/EC) PO pantoprazole 40 mg tablet,delayed release (DR/EC) PO cholecalciferol (vitamin D3) 25 mcg (1,000 unit) tablet PO Label Comments: TAKE 1 TABLET ORALLY ONCE PER DAY FOR 30 DAYS betamethasone, augmented 0.05 % cream TOPICAL Label Comments: APPLY TO AFFECTED AREAS 1X DAILY NEEDED WHEN FLARED paroxetine HCl 10 MG tablet 20 mg PO DAILY sumatriptan succinate 50 MG tablet 50 mg PO QHS PRN (Reason: Sleep) levothyroxine 25 MCG tablet 25 mcg PO DAILY Primary Care Provider: Tj Campuzano Chi Referrals: Tj Campuzano Chi, MD [Primary Care Provider] - 3-5 Days Disposition Disposition: Home, Self Care
--- NOTE | 2022-08-28 15:47 | CT_ITS ---
STUDY: CTA CHEST REASON FOR EXAM: Female, 81 years old. Suspect pulmonary embolus RADIATION DOSAGE (If Supplied By Facility): CTDIvol = ( 5.13 ) mGy, DLP = ( 140.96 ) mGycm TECHNIQUE: The examination was performed with the intravenous administration of IV 100mL [id number]-[id number]. Post-processing of the angiographic images was performed, with multiplanar reformation and 3D reconstruction. Individualized dose optimization techniques were used for this CT. COMPARISON: Chest radiograph August 28, 2022 FINDINGS: Normal enhancement of the main pulmonary artery and right and left pulmonary arteries. Normal enhancement of the bilateral peripheral pulmonary arteries. There is no demonstrated pulmonary embolism. Mild atherosclerotic changes of the aorta without evidence for aneurysm There is no demonstrated aortic dissection. Normal heart and pericardium. Tiny subcentimeter mediastinal nodes likely benign. Normal hilar regions. Normal visualized trachea and bronchi. The lungs are well expanded. Normal pulmonary parenchyma. Normal pleura. Incidental finding of asymmetric increased parenchymal density in the right breast of uncertain etiology and significance. Would recommend correlation with mammography or ultrasound if clinically indicated. Dorsal spine demonstrates degenerative changes. Normal visualized upper abdomen. CT/CTA Chest W/WO Contrast IMPRESSION: No acute cardiopulmonary pathology. No evidence for pulmonary embolus. Incidental finding of asymmetric prominence of the right breast density of uncertain significance. Clinical correlation recommended. Electronically Signed: Ty Bob MD at 16:33 EST ,
--- NOTE | 2022-08-28 15:57 | CPS ---
Critical ABG values verified times two. Hand delivered values to DR. Ahumada. Verified by read back.
[2022-08-28 16:00] LABS: Allen Test Positive; Base Excess -3 mmol/L (-2 to +2); Bicarbonate 18.2 mmol/L (22-26); Blood Gas Specimen Type ART; O2 Delivery Device Room Air; PO2 108 mmHG (75-100); SITE L Radial; SO2 99 % (95-99); Total Carbon Dioxide 19 mmol/L; pCO2 17.3 mmHg (35-45); pH 7.63 (7.35-7.45)
--- NOTE | 2022-08-28 16:57 | CT_ITS ---
INDICATION: Unsteady gait EXAMINATION: CT BRAIN - CT Head or Brain W/O Contrast Injection TECHNIQUE: Multiple axial images were obtained of the head without intravenous contrast. A radiation dose optimization technique was used for this scan. IV Contrast dosage and agent: None. COMPARISON: October 12, 2017 FINDINGS: BRAIN PARENCHYMA: No intra- or extra-axial hemorrhage. No evidence of acute infarct. No intracranial mass or mass effect. There is preservation of the sandoval/white matter interface. Posterior fossa structures are unremarkable. CSF SPACES: Mild atrophy and periventricular white matter ischemic changes.. Basal cisterns are patent. CALVARIUM, SKULL BASE, PARANASAL SINUSES AND MASTOID AIR CELLS: Mild mucosal thickening of right ethmoid air cells. No discrete lytic or blastic abnormalities. ORBITS: Both globes, extraocular muscles, optic nerves and retrobulbar fat appear unremarkable. CT/Brain/Head without Contrast IMPRESSION: Mild atrophy and periventricular white matter ischemic change. No acute bleed. If concern for acute infarct MRI recommended Electronically Signed: Ty Bob MD at 18:11 EST ,
[2022-08-28 18:10] LABS: Reflex Lactate? Y
[2022-08-28 18:58] VITALS: BP 151/71; PULSE 65
[2022-08-28 18:59] VITALS: BP 151/67; PULSE 71; RESP 16; O2SAT 94
[2022-08-28 19:02] VITALS: BP 151/67; PULSE 71; RESP 14; TEMP 36.4; O2SAT 97
[2022-08-28 19:30] LABS: Allen Test Positive; Base Excess -2 mmol/L (-2 to +2); Bicarbonate 20.3 mmol/L (22-26); Blood Gas Specimen Type ART; O2 Delivery Device Room Air; PO2 85 mmHG (75-100); SITE L Radial; SO2 98 % (95-99); Total Carbon Dioxide 21 mmol/L; pCO2 21.5 mmHg (35-45); pH 7.58 (7.35-7.45)
--- NOTE | 2022-08-28 19:42 | PCM.PN.HOSP ---
Subjective Subjective 81-year-old female with a history of dementia presented to the hospital after having what sounded like a panic attack while at the [address]. The daughter was called because her mother was having difficulty breathing and she was rapidly breathing. When her daughter arrived her mother was hyperventilating and shaking. When she came into the ER she was having respirations in the 40s and a pH at that time was 7.63 on ABG. Since then she was able to calm down and her respirations got under control. Her lactic acid was 4.2 her other lab work was unremarkable and her vital signs are all normal, she was afebrile and there is no sign of infection whatsoever chest x-ray and UA were unremarkable. At the time of my evaluation the daughter states that she looks much better and is almost back to her baseline. I was able to get Ms. Zendejas out of bed and she was able to walk about 175 feet with no assistance. She had some minor balance issues that she was able to self-correct without any assistance. Objective Data Objective Data Vital Signs: Vital Signs Temp Pulse Resp BP Pulse Ox O2 Del Method 97.6 F L 71 14 151/67 H 97 Room Air 08/28/22 19:02 08/28/22 19:02 08/28/22 19:02 08/28/22 19:02 08/28/22 19:02 08/28/22 19:02 Oxygen Delivery Method Room Air Weight: 152 lb 12.485 oz Body Mass Index (BMI) 25.4 Lab / Micro Data Result Diagrams: 08/28/22 14:06 08/28/22 14:06 Labs: Laboratory Results - last 24 hr 08/28/22 14:06: WBC 5.3, RBC 4.56, Hgb 13.8, Hct 41.6, MCV 91.2, MCH 30.3, MCHC 33.2, RDW Std Deviation 47.8 H, RDW Coeff of Nicki 14.2, Plt Count 187, MPV 10.1, Immature Gran % (Auto) 0.200, Neut % (Auto) 65.1, Lymph % (Auto) 25.5, [place] % (Auto) 7.8, Eos % (Auto) 0.8, Baso % (Auto) 0.6, Absolute Neuts (auto) 3.4, Absolute Lymphs (auto) 1.34, Nucleated RBC % 0 08/28/22 14:06: Sodium 140, Potassium 4.3, Chloride 110 H, Carbon Dioxide 20.0 L, Anion Gap 10, BUN 25 H, Creatinine 1.09 H, Estim Creat Clear Calc 34.95, Est GFR (MDRD) Af Amer 62, Est GFR (MDRD) Non-Af 51 L, BUN/Creatinine Ratio 22.9 H, Glucose 109 H, Calcium 10.2 H 08/28/22 14:06: Lactic Acid 4.2 H* 08/28/22 14:10: Urine Color Straw, Urine Clarity Clear, Urine pH 7.0, Ur Specific [place] 1.005, Urine Protein Negative, Urine Glucose (UA) Normal, Urine Ketones Negative, Urine Occult Blood Negative, Urine Nitrite Negative, Urine Bilirubin Negative, Urine Urobilinogen Normal, Ur Leukocyte Esterase Negative, Urine RBC 0 SEEN, Urine WBC 0 SEEN, Ur Squamous Epith Cells 0 SEEN, Urine Bacteria 0 SEEN, Urine Mucus 0 SEEN ABG Data ABG results: ABG 08/28/22 08/28/22 15:57 19:24 Specimen Type ART ART Sample Site L Radial L Radial pH 7.63 H* 7.58 H Bicarbonate Actual 18.2 L 20.3 L Total CO2 19 21 Base Excess -3 L -2 O2 Saturation 99 98 ABG pCO2 17.3 L* 21.5 L ABG pO2 108 H 85 Saul Test Positive Positive O2 Delivery Device Room Air Room Air Crit Call To/Read Back Yes Radiography Diagnostic Testing: Radiology Impression Chest X-Ray 08/28/22 14:25 IMPRESSION: Possibly right middle lobe pneumonia. Electronically Signed: Lazaro Thomsa MD at 15:30 EST , Chest CTA 08/28/22 15:47 IMPRESSION: No acute cardiopulmonary pathology. No evidence for pulmonary embolus. Incidental finding of asymmetric prominence of the right breast density of uncertain significance. Clinical correlation recommended. Electronically Signed: Ty Bob MD at 16:33 EST , Brain CT 08/28/22 16:57 IMPRESSION: Mild atrophy and periventricular white matter ischemic change. No acute bleed. If concern for acute infarct MRI recommended Electronically Signed: Ty Bob MD at 18:11 EST Reading Location ID and State: [address] [place] [address] , Service support , Physical Exam Narrative General: Alert, Oriented x3, Cooperative, No apparent distress HEENT: Atraumatic, PERRLA, EOMI, Normocephalic Oral: Moist Mucosa Neck: Supple, No JVD Lungs: Clear to auscultation, Normal air movement, No rhonchi, No wheeze, No rales Cardiovascular: Regular rate, Regular Rhythm, Normal S1, Normal S2, No murmurs Abdomen: Soft, Non Tender, Non-Distended, No Hepato-splenomegaly Extremities: No edema, Capillary Refill Less than 3 Seconds Skin: No rashes, No breakdown Musculoskeletal: No Tenderness to Palpation of Joints or Extremities Neurological: Cranial nerves II-XII grossly intact, Motor Exam 5/5 strength throughout, Sensory exam intact to light touch and pain Psych/Mental Status: Normal Affect, Appropriate Assessment & Plan Assessment/Plan (1) Acute hyperventilation syndrome: (2) Acute respiratory alkalosis: (3) Anxiety reaction: (4) Acidosis, lactic: PLAN: Plan 1. Acute respiratory alkalosis secondary to hyperventilation from anxiety ? This appears to be all anxiety related, she is unable to tell me what she was anxious about secondary to her dementia. Her lactic acidosis is also likely related to the shaking that she was having that her daughter had reported. ? Repeat ABG shows all of her numbers are improving and I had an extensive discussion with the daughter who would like to take her home since she is able to walk independently. The daughter will stay with her and I discussed bring her back in if she spikes a temperature or if she has another panic inducing reaction with hyperventilation. ? No signs of infection to be concerned about at this time and all of her vital signs and lab work are unremarkable other than the stated above 2. Dementia, hypothyroidism, anxiety, depression are all chronic medical conditions which complicate her care. Her home medications can be continued on discharge I recommend follow-up with your PCP in 3 to 5 days. Charges/Coding Visit Charges Office Visits / Consults: 50096 ED Visit; Low/Mod Severity
[2022-08-28 20:00] VITALS: BP 138/72; PULSE 74; RESP 20; O2SAT 94
[2022-08-28 20:26] LABS: Lactic Acid 1.6 mmol/L (0.4-1.9)
[2022-08-28 20:42] VITALS: RESP 20
== END 2022-08-28 20:43 | disposition home or self-care (01) ==
PROVIDERS: Emergency Provider Emergency Medicine; PCP Family Medicine Geriatric Medicine; Visit Provider Emergency Medicine
DX: R06.4 Hyperventilation (principal); F03.90 Unspecified dementia, unspecified severity, without behavioral disturbance, psychotic disturbance, mood disturbance, and anxiety; E87.3 Alkalosis; F41.1 Generalized anxiety disorder; E78.5 Hyperlipidemia, unspecified; N28.9 Disorder of kidney and ureter, unspecified; E87.20 Acidosis, unspecified; R06.02 Shortness of breath; Z86.718 Personal history of other venous thrombosis and embolism
CPT/HCPCS: 36600; 70450; 71046; 71275; 80048; 81001; 82803; 83605; 85025; 99285; P9612; Q9967

== ENCOUNTER → 2023-01-13 | Outpatient (CLI) | payer MEDICARE, SELFPAY ==
[2023-01-13 16:40] LABS: Absolute Lymphocyte Count 1.32 X10^3/uL (0.83-4.51); Absolute Neutrophil Count 2.3 X10^3/uL (2.0-7.7); Basophil# 0.04 X10^3/uL; Eosinophil# 0.14 X10^3/uL; Eosinophils% 3.3 % (0-5); Hematocrit 39.1 % (37-47); Hemoglobin 12.5 g/dL (12.0-15.0); Lymphocyte # 1.32 X10^3/ul (0.83-4.51); Lymphocyte % 31.6 % (19-41); Mean Corpuscular Hgb 30.3 pg (27.0-32.0); Mean Corpuscular Volume 94.9 fL (81-99); Mean Platelet Vol. 10.3 fl (6.2-12.0); Monocyte# 0.39 X10^3/uL; Monocyte% 9.3 % (0-10); NRBC Flagged by Analyzer 0 % (0-5); Neutrophil # 2.28 X10^3/uL (2.7-7.7); Neutrophil % 54.6 % (47-70); Platelet Count 184 K/mm3 (150-450); RBC Distribution Width CV 13.8 % (11.6-14.6); Red Blood Count 4.12 M/mm3 (4.2-5.4); White Blood Count 4.2 K/mm3 (4.4-11.0)
[2023-01-13 17:00] LABS: Vitamin D,25 Hydroxy 27.1 ng/mL
[2023-01-13 17:15] LABS: AST(SGOT) 21 U/L (15-37); Alanine Aminotransfer ALT/SGPT 25 U/L (13-56); Albumin, Serum 3.4 g/dL (3.2-5.0); Alkaline Phosphatase 84 U/L (45-117); Anion Gap 5 (5-15); BUN 26 mg/dL (7-18); BUN/Creat Ratio 22.4 RATIO (10-20); Calcium,Total 8.6 mg/dL (8.5-10.1); Chloride 110 mmol/L (98-107); Creatinine, Serum 1.16 mg/dL (0.55-1.02); EST Glomerular Filtration Rate 48 mL/min (>60); Est Glom Filt Rate - Afr Amer 58 mL/min (>60); Globulin 3.4 g/dL (2.2-4.2); Glucose 98 mg/dL (74-106); Potassium 4.6 mmol/L (3.5-5.1); Protein, Total 6.8 g/dL (6.4-8.2); Sodium Level 142 mmol/L (136-145); Thyroid Stim Hormone (TSH) 4.39 uIU/mL (0.358-3.74)
== END | disposition home or self-care (01) ==
LOC: POLAB3 14:24
PROVIDERS: PCP Family Medicine Geriatric Medicine; Visit Provider Family Medicine Geriatric Medicine
DX: R53.83 Other fatigue (principal); E55.9 Vitamin D deficiency, unspecified
CPT/HCPCS: 36415; 80053; 82306; 84443; 85025

== ENCOUNTER 2023-02-08 11:54 | Outpatient (CLI) | payer MEDICARE, SELFPAY ==
[2023-02-08 12:23] LABS: Absolute Lymphocyte Count 1.25 X10^3/uL (0.83-4.51); Basophil# 0.02 X10^3/uL; Basophil% 0.4 % (0-1); Eosinophil# 0.73 X10^3/uL; Eosinophils% 13.4 % (0-5); Hematocrit 42.5 % (37-47); Hemoglobin 13.6 g/dL (12.0-15.0); Lymphocyte # 1.25 X10^3/ul (0.83-4.51); Lymphocyte % 22.9 % (19-41); Mean Corpuscular Hgb 30.6 pg (27.0-32.0); Mean Corpuscular Volume 95.5 fL (81-99); Mean Platelet Vol. 9.8 fl (6.2-12.0); Monocyte% 7.3 % (0-10); NRBC Flagged by Analyzer 0 % (0-5); Neutrophil # 3.04 X10^3/uL (2.7-7.7); Neutrophil % 55.6 % (47-70); Platelet Count 198 K/mm3 (150-450); RBC Distribution Width CV 14.4 % (11.6-14.6); RBC Distribution Width SD 50.3 fl (35.1-43.9); Red Blood Count 4.45 M/mm3 (4.2-5.4); White Blood Count 5.5 K/mm3 (4.4-11.0)
[2023-02-08 12:27] LABS: Erythrocyte Sedimentation Rate 4 mm/hr (0-30)
[2023-02-08 14:55] LABS: ALB/GLOB Ratio 1.1 RATIO (0.9-2.4); AST(SGOT) 18 U/L (15-37); Alanine Aminotransfer ALT/SGPT 21 U/L (13-56); Albumin, Serum 3.8 g/dL (3.2-5.0); Alkaline Phosphatase 98 U/L (45-117); Anion Gap 3 (5-15); BUN 29 mg/dL (7-18); BUN/Creat Ratio 23.4 RATIO (10-20); CRP, High Sensitivity Cardiac 1.07 mg/L; Calcium,Total 9.3 mg/dL (8.5-10.1); Chloride 111 mmol/L (98-107); Creatinine, Serum 1.24 mg/dL (0.55-1.02); EST Glomerular Filtration Rate 44 mL/min (>60); Est Glom Filt Rate - Afr Amer 53 mL/min (>60); Globulin 3.5 g/dL (2.2-4.2); Glucose 112 mg/dL (74-106); Potassium 4.6 mmol/L (3.5-5.1); Protein, Total 7.3 g/dL (6.4-8.2); Sodium Level 140 mmol/L (136-145)
[2023-02-08 15:27] LABS: Thyroid Stim Hormone (TSH) 3.37 uIU/mL (0.358-3.74)
[2023-02-09 13:08] LABS: ANTINUCLEAR ANTIBODIES DIRECT Negative (Negative)
== END 2023-02-08 23:59 | disposition home or self-care (01) ==
PROVIDERS: PCP Family Medicine Geriatric Medicine; Referring Provider Family Medicine Geriatric Medicine; Visit Provider Family Medicine Geriatric Medicine
DX: R21 Rash and other nonspecific skin eruption (principal); I10 Essential (primary) hypertension; E03.9 Hypothyroidism, unspecified
CPT/HCPCS: 36415; 80053; 84443; 85025; 85652; 86038; 86141

== ENCOUNTER → 2023-03-23 | Outpatient (CLI) | payer MEDICARE, SELFPAY ==
[2023-03-23 16:59] LABS: Absolute Lymphocyte Count 1.26 X10^3/uL (0.83-4.51); Basophil# 0.03 X10^3/uL; Basophil% 0.5 % (0-1); Eosinophil# 0.17 X10^3/uL; Eosinophils% 2.8 % (0-5); Hematocrit 41.5 % (37-47); Hemoglobin 13.1 g/dL (12.0-15.0); Lymphocyte # 1.26 X10^3/ul (0.83-4.51); Mean Corp Hgb Conc 31.6 g/dL (32-36); Mean Corpuscular Volume 95.2 fL (81-99); Mean Platelet Vol. 9.6 fl (6.2-12.0); Monocyte# 0.49 X10^3/uL; Monocyte% 8.2 % (0-10); NRBC Flagged by Analyzer 0 % (0-5); Neutrophil % 66.8 % (47-70); Platelet Count 192 K/mm3 (150-450); RBC Distribution Width CV 14.2 % (11.6-14.6); Red Blood Count 4.36 M/mm3 (4.2-5.4)
[2023-03-23 17:41] LABS: Vitamin D,25 Hydroxy 20.3 ng/mL
[2023-03-23 17:45] LABS: ALB/GLOB Ratio 0.9 RATIO (0.9-2.4); AST(SGOT) 21 U/L (15-37); Alanine Aminotransfer ALT/SGPT 30 U/L (13-56); Albumin, Serum 3.3 g/dL (3.2-5.0); Alkaline Phosphatase 99 U/L (45-117); Anion Gap 2 (5-15); BUN 28 mg/dL (7-18); BUN/Creat Ratio 23.9 RATIO (10-20); Calcium,Total 8.9 mg/dL (8.5-10.1); Chloride 110 mmol/L (98-107); Creatinine, Serum 1.17 mg/dL (0.55-1.02); EST Glomerular Filtration Rate 47 mL/min (>60); Est Glom Filt Rate - Afr Amer 57 mL/min (>60); Globulin 3.6 g/dL (2.2-4.2); Glucose 79 mg/dL (74-106); Potassium 4.6 mmol/L (3.5-5.1); Protein, Total 6.9 g/dL (6.4-8.2); Sodium Level 142 mmol/L (136-145); Thyroid Stim Hormone (TSH) 1.63 uIU/mL (0.358-3.74)
== END | disposition home or self-care (01) ==
PROVIDERS: PCP Family Medicine Geriatric Medicine; Referring Provider Family Medicine Geriatric Medicine; Visit Provider Family Medicine Geriatric Medicine
DX: R53.83 Other fatigue (principal); E55.9 Vitamin D deficiency, unspecified
CPT/HCPCS: 36415; 80053; 82306; 84443; 85025

== ENCOUNTER → 2023-04-13 | Outpatient (CLI) | payer MEDICARE, SELFPAY ==
[2023-04-13 16:53] LABS: Absolute Lymphocyte Count 1.16 X10^3/uL (0.83-4.51); Absolute Neutrophil Count 3.1 X10^3/uL (2.0-7.7); Basophil# 0.04 X10^3/uL; Basophil% 0.8 % (0-1); Eosinophil# 0.09 X10^3/uL; Eosinophils% 1.9 % (0-5); Hematocrit 40.5 % (37-47); Hemoglobin 13.2 g/dL (12.0-15.0); Lymphocyte # 1.16 X10^3/ul (0.83-4.51); Mean Corp Hgb Conc 32.6 g/dL (32-36); Mean Corpuscular Hgb 31.1 pg (27.0-32.0); Mean Corpuscular Volume 95.3 fL (81-99); Mean Platelet Vol. 10.7 fl (6.2-12.0); Monocyte# 0.45 X10^3/uL; Monocyte% 9.3 % (0-10); NRBC Flagged by Analyzer 0 % (0-5); Neutrophil # 3.08 X10^3/uL (2.7-7.7); Neutrophil % 63.8 % (47-70); Platelet Count 173 K/mm3 (150-450); RBC Distribution Width CV 13.9 % (11.6-14.6); RBC Distribution Width SD 48.4 fl (35.1-43.9); Red Blood Count 4.25 M/mm3 (4.2-5.4); White Blood Count 4.8 K/mm3 (4.4-11.0)
[2023-04-13 17:08] LABS: Vitamin D,25 Hydroxy 24.4 ng/mL
[2023-04-13 17:15] LABS: AST(SGOT) 20 U/L (15-37); Alanine Aminotransfer ALT/SGPT 18 U/L (13-56); Albumin, Serum 3.5 g/dL (3.2-5.0); Alkaline Phosphatase 83 U/L (45-117); Anion Gap 5 (5-15); BUN 21 mg/dL (7-18); BUN/Creat Ratio 15.7 RATIO (10-20); Calcium,Total 9.1 mg/dL (8.5-10.1); Chloride 111 mmol/L (98-107); Creatinine, Serum 1.34 mg/dL (0.55-1.02); EST Glomerular Filtration Rate 40 mL/min (>60); Est Glom Filt Rate - Afr Amer 49 mL/min (>60); Globulin 3.6 g/dL (2.2-4.2); Glucose 108 mg/dL (74-106); Potassium 4.5 mmol/L (3.5-5.1); Protein, Total 7.1 g/dL (6.4-8.2); Sodium Level 140 mmol/L (136-145); Thyroid Stim Hormone (TSH) 1.11 uIU/mL (0.358-3.74)
== END | disposition home or self-care (01) ==
PROVIDERS: PCP Family Medicine Geriatric Medicine; Visit Provider Family Medicine Geriatric Medicine
DX: R53.83 Other fatigue (principal); E55.9 Vitamin D deficiency, unspecified
CPT/HCPCS: 36415; 80053; 82306; 84443; 85025

== ENCOUNTER → 2023-07-13 | Outpatient (CLI) | payer MEDICARE, SELFPAY ==
[2023-07-13 14:37] LABS: Absolute Lymphocyte Count 1.17 X10^3/uL (0.83-4.51); Basophil# 0.03 X10^3/uL; Basophil% 0.5 % (0-1); Eosinophil# 0.11 X10^3/uL; Eosinophils% 1.9 % (0-5); Hematocrit 39.3 % (37-47); Hemoglobin 12.5 g/dL (12.0-15.0); Lymphocyte # 1.17 X10^3/ul (0.83-4.51); Lymphocyte % 20.2 % (19-41); Mean Corp Hgb Conc 31.8 g/dL (32-36); Mean Corpuscular Hgb 30.5 pg (27.0-32.0); Mean Corpuscular Volume 95.9 fL (81-99); Mean Platelet Vol. 10.1 fl (6.2-12.0); Monocyte# 0.44 X10^3/uL; Monocyte% 7.6 % (0-10); NRBC Flagged by Analyzer 0 % (0-5); Neutrophil # 4.01 X10^3/uL (2.7-7.7); Neutrophil % 69.5 % (47-70); Platelet Count 221 K/mm3 (150-450); RBC Distribution Width CV 13.4 % (11.6-14.6); RBC Distribution Width SD 48.2 fl (35.1-43.9); White Blood Count 5.8 K/mm3 (4.4-11.0)
[2023-07-13 14:55] LABS: Vitamin D,25 Hydroxy 25.4 ng/mL
[2023-07-13 15:01] LABS: ALB/GLOB Ratio 0.9 RATIO (0.9-2.4); AST(SGOT) 17 U/L (15-37); Alanine Aminotransfer ALT/SGPT 13 U/L (13-56); Albumin, Serum 3.4 g/dL (3.2-5.0); Alkaline Phosphatase 81 U/L (45-117); Anion Gap 6 (5-15); BUN 26 mg/dL (7-18); Calcium,Total 8.9 mg/dL (8.5-10.1); Chloride 110 mmol/L (98-107); EST Glomerular Filtration Rate 42 mL/min (>60); Est Glom Filt Rate - Afr Amer 50 mL/min (>60); Globulin 3.8 g/dL (2.2-4.2); Glucose 133 mg/dL (74-106); Potassium 4.3 mmol/L (3.5-5.1); Protein, Total 7.2 g/dL (6.4-8.2); Sodium Level 142 mmol/L (136-145); Thyroid Stim Hormone (TSH) 0.18 uIU/mL (0.358-3.74)
== END | disposition home or self-care (01) ==
LOC: POLAB3 14:01
PROVIDERS: PCP Family Medicine Geriatric Medicine; Visit Provider Family Medicine Geriatric Medicine
DX: R53.83 Other fatigue (principal); E55.9 Vitamin D deficiency, unspecified
CPT/HCPCS: 36415; 80053; 82306; 84443; 85025

== ENCOUNTER → 2023-10-20 | Outpatient (CLI) | payer MEDICARE, SELFPAY ==
[2023-10-20 16:08] LABS: Absolute Lymphocyte Count 1.18 X10^3/uL (0.83-4.51); Absolute Neutrophil Count 2.7 X10^3/uL (2.0-7.7); Basophil# 0.03 X10^3/uL; Basophil% 0.7 % (0-1); Eosinophils% 2.2 % (0-5); Hematocrit 38.8 % (37-47); Hemoglobin 12.3 g/dL (12.0-15.0); Lymphocyte # 1.18 X10^3/ul (0.83-4.51); Lymphocyte % 26.5 % (19-41); Mean Corp Hgb Conc 31.7 g/dL (32-36); Mean Corpuscular Hgb 29.9 pg (27.0-32.0); Mean Corpuscular Volume 94.4 fL (81-99); Mean Platelet Vol. 10.6 fl (6.2-12.0); NRBC Flagged by Analyzer 0 % (0-5); Neutrophil # 2.74 X10^3/uL (2.7-7.7); Neutrophil % 61.4 % (47-70); Platelet Count 168 K/mm3 (150-450); RBC Distribution Width CV 14.2 % (11.6-14.6); RBC Distribution Width SD 49.1 fl (35.1-43.9); Red Blood Count 4.11 M/mm3 (4.2-5.4); White Blood Count 4.5 K/mm3 (4.4-11.0)
[2023-10-20 16:26] LABS: AST(SGOT) 21 U/L (15-37); Alanine Aminotransfer ALT/SGPT 18 U/L (13-56); Albumin, Serum 3.4 g/dL (3.2-5.0); Alkaline Phosphatase 84 U/L (45-117); Anion Gap 3 (5-15); BUN 19 mg/dL (7-18); BUN/Creat Ratio 12.8 RATIO (10-20); Chloride 112 mmol/L (98-107); Creatinine, Serum 1.48 mg/dL (0.55-1.02); EST Glomerular Filtration Rate 36 mL/min (>60); Est Glom Filt Rate - Afr Amer 43 mL/min (>60); Globulin 3.5 g/dL (2.2-4.2); Glucose 89 mg/dL (74-106); Potassium 4.4 mmol/L (3.5-5.1); Protein, Total 6.9 g/dL (6.4-8.2); Sodium Level 142 mmol/L (136-145); Thyroid Stim Hormone (TSH) 3.21 uIU/mL (0.358-3.74)
--- OUTSIDE RECORDS SUMMARY | 2023-10-20 18:09 | XMS RPT_ITS | CCD ---
Author Name Unknown Address [address] [place] [address] Organization [facility] Care Team Providers Care Button Reclaimer Name Role Phone ORACIO DAVID JR. Unavailable Unavailable MILANGOGO HWANG-CHI Unavailable Unavailable Results Test Name Value Interpretation Reference Range Facil ity Encounters Encounter Date Encounter Type Care Provider Facility Start: 10-20-2017 End: 10-21-2017 Amb[facility] P[facility] Category Payer Unknown [id number] Summary Purpose Family History No Family History Records FoundNo Family History Records Found Advance Directives No Advanced Directives Records FoundNo Advanced Directives Records Found Additional Source Comments INFORMATION SOURCE (unrecogn ized section and content) DATE CREATED AUTHOR AUTHOR'S ORGANIZ ATION 02/23/2018 [facility] FOR RECORDS PERTAINING TO PATIENTS WHO ARE OR HAVE BEEN ENROLLED IN A CHEMICAL DEPENDENCY/SUBSTANCEABUSE PROGRAM, SOME INFORMATION MAY BE OMITTED. This clinical summary was aggregated from multiple sources. Caution should be exercised in using it in the provision of clinical care. This summary normalizes information from multiple sources, and as a consequence, information in this document may materially change the coding, format and clinical context of patient data. In addition, data may be omitted in some cases. CLINICAL DECISIONS SHOULD BE BASED ON THE PRIMARY CLINICAL RECORDS. [employer] provides no warranty or guarantee of the accuracy or completeness of information in this document.
== END | disposition home or self-care (01) ==
LOC: POLAB3 14:06
PROVIDERS: PCP Family Medicine Geriatric Medicine; Visit Provider Family Medicine Geriatric Medicine
DX: R53.83 Other fatigue (principal); E55.9 Vitamin D deficiency, unspecified
CPT/HCPCS: 36415; 80053; 82306; 84443; 85025

== ENCOUNTER → 2024-01-17 | Outpatient (CLI) | payer MEDICARE, SELFPAY ==
[2024-01-17 16:38] LABS: Absolute Lymphocyte Count 1.09 X10^3/uL (0.83-4.51); Absolute Neutrophil Count 3.3 X10^3/uL (2.0-7.7); Basophil# 0.04 X10^3/uL; Basophil% 0.8 % (0-1); Eosinophil# 0.12 X10^3/uL; Eosinophils% 2.4 % (0-5); Hematocrit 37.3 % (37-47); Lymphocyte # 1.09 X10^3/ul (0.83-4.51); Lymphocyte % 21.7 % (19-41); Mean Corp Hgb Conc 32.2 g/dL (32-36); Mean Corpuscular Hgb 29.5 pg (27.0-32.0); Mean Corpuscular Volume 91.6 fL (81-99); Mean Platelet Vol. 10.4 fl (6.2-12.0); Monocyte# 0.42 X10^3/uL; Monocyte% 8.4 % (0-10); NRBC Flagged by Analyzer 0 % (0-5); Neutrophil # 3.34 X10^3/uL (2.7-7.7); Neutrophil % 66.5 % (47-70); Platelet Count 162 K/mm3 (150-450); RBC Distribution Width CV 14.4 % (11.6-14.6); RBC Distribution Width SD 48.4 fl (35.1-43.9); Red Blood Count 4.07 M/mm3 (4.2-5.4)
[2024-01-17 17:20] LABS: Vitamin D,25 Hydroxy 19.5 ng/mL
[2024-01-17 17:33] LABS: AST(SGOT) 24 U/L (15-37); Alanine Aminotransfer ALT/SGPT 15 U/L (13-56); Albumin, Serum 3.5 g/dL (3.2-5.0); Alkaline Phosphatase 81 U/L (45-117); Anion Gap 4 (5-15); BUN 21 mg/dL (7-18); BUN/Creat Ratio 14.7 RATIO (10-20); Calcium,Total 8.9 mg/dL (8.5-10.1); Chloride 109 mmol/L (98-107); Creatinine, Serum 1.43 mg/dL (0.55-1.02); EST Glomerular Filtration Rate 37 mL/min (>60); Est Glom Filt Rate - Afr Amer 45 mL/min (>60); Globulin 3.5 g/dL (2.2-4.2); Glucose 93 mg/dL (74-106); Potassium 4.8 mmol/L (3.5-5.1); Sodium Level 139 mmol/L (136-145); Thyroid Stim Hormone (TSH) 2.64 uIU/mL (0.358-3.74)
== END | disposition home or self-care (01) ==
LOC: LAB 15:46
PROVIDERS: PCP Family Medicine Geriatric Medicine; Referring Provider Family Medicine Geriatric Medicine; Visit Provider Family Medicine Geriatric Medicine
DX: R53.83 Other fatigue (principal); E55.9 Vitamin D deficiency, unspecified
CPT/HCPCS: 36415; 80053; 82306; 84443; 85025

== ENCOUNTER → 2024-05-18 | Outpatient (CLI) | payer MEDICARE, SELFPAY ==
[2024-05-18 15:03] LABS: Absolute Lymphocyte Count 0.93 X10^3/uL (0.83-4.51); Absolute Neutrophil Count 2.7 X10^3/uL (2.0-7.7); Basophil# 0.05 X10^3/uL; Basophil% 1.2 % (0-1); Eosinophils% 2.5 % (0-5); Hematocrit 39.7 % (37-47); Hemoglobin 12.6 g/dL (12.0-15.0); Lymphocyte # 0.93 X10^3/ul (0.83-4.51); Lymphocyte % 22.9 % (19-41); Mean Corp Hgb Conc 31.7 g/dL (32-36); Mean Corpuscular Hgb 29.2 pg (27.0-32.0); Mean Corpuscular Volume 92.1 fL (81-99); Mean Platelet Vol. 10.5 fl (6.2-12.0); Monocyte# 0.25 X10^3/uL; Monocyte% 6.1 % (0-10); NRBC Flagged by Analyzer 0 % (0-5); Neutrophil # 2.72 X10^3/uL (2.7-7.7); Neutrophil % 66.8 % (47-70); Platelet Count 163 K/mm3 (150-450); RBC Distribution Width CV 14.6 % (11.6-14.6); RBC Distribution Width SD 49.9 fl (35.1-43.9); Red Blood Count 4.31 M/mm3 (4.2-5.4); White Blood Count 4.1 K/mm3 (4.4-11.0)
[2024-05-18 15:27] LABS: ALB/GLOB Ratio 1.1 RATIO (0.9-2.4); AST(SGOT) 19 U/L (15-37); Alanine Aminotransfer ALT/SGPT 16 U/L (13-56); Albumin, Serum 3.6 g/dL (3.2-5.0); Alkaline Phosphatase 84 U/L (45-117); Anion Gap 5 (5-15); BUN 18 mg/dL (7-18); BUN/Creat Ratio 11.3 RATIO (10-20); Calcium,Total 9.3 mg/dL (8.5-10.1); Chloride 114 mmol/L (98-107); Creatinine, Serum 1.59 mg/dL (0.55-1.02); EST Glomerular Filtration Rate 33 mL/min (>60); Est Glom Filt Rate - Afr Amer 40 mL/min (>60); Globulin 3.4 g/dL (2.2-4.2); Glucose 110 mg/dL (74-106); Potassium 4.6 mmol/L (3.5-5.1); Sodium Level 141 mmol/L (136-145)
== END | disposition home or self-care (01) ==
LOC: POLAB3 14:52
PROVIDERS: PCP Family Medicine Geriatric Medicine; Visit Provider Family Medicine Geriatric Medicine
DX: E03.9 Hypothyroidism, unspecified (principal); E78.5 Hyperlipidemia, unspecified; N39.0 Urinary tract infection, site not specified
CPT/HCPCS: 36415; 80053; 84443; 85025

== ENCOUNTER → 2024-07-19 | Outpatient (CLI) | payer MEDICARE, SELFPAY ==
[2024-07-19 14:47] LABS: Absolute Lymphocyte Count 1.35 X10^3/uL (0.83-4.51); Absolute Neutrophil Count 2.6 X10^3/uL (2.0-7.7); Basophil# 0.04 X10^3/uL; Basophil% 0.9 % (0-1); Eosinophil# 0.13 X10^3/uL; Eosinophils% 2.9 % (0-5); Hematocrit 39.8 % (37-47); Hemoglobin 12.8 g/dL (12.0-15.0); Lymphocyte # 1.35 X10^3/ul (0.83-4.51); Lymphocyte % 29.9 % (19-41); Mean Corp Hgb Conc 32.2 g/dL (32-36); Mean Corpuscular Hgb 29.8 pg (27.0-32.0); Mean Corpuscular Volume 92.8 fL (81-99); Mean Platelet Vol. 10.5 fl (6.2-12.0); Monocyte# 0.35 X10^3/uL; Monocyte% 7.7 % (0-10); NRBC Flagged by Analyzer 0 % (0-5); Neutrophil # 2.64 X10^3/uL (2.7-7.7); Neutrophil % 58.4 % (47-70); Platelet Count 182 K/mm3 (150-450); RBC Distribution Width CV 14.2 % (11.6-14.6); RBC Distribution Width SD 48.5 fl (35.1-43.9); Red Blood Count 4.29 M/mm3 (4.2-5.4); White Blood Count 4.5 K/mm3 (4.4-11.0)
[2024-07-19 15:03] LABS: Vitamin D,25 Hydroxy 7.6 ng/mL
[2024-07-19 15:13] LABS: AST(SGOT) 21 U/L (15-37); Alanine Aminotransfer ALT/SGPT 16 U/L (13-56); Albumin, Serum 3.7 g/dL (3.2-5.0); Alkaline Phosphatase 93 U/L (45-117); Anion Gap 3 (5-15); BUN 18 mg/dL (7-18); BUN/Creat Ratio 12.4 RATIO (10-20); Calcium,Total 9.1 mg/dL (8.5-10.1); Chloride 113 mmol/L (98-107); Creatinine, Serum 1.45 mg/dL (0.55-1.02); EST Glomerular Filtration Rate 37 mL/min (>60); Est Glom Filt Rate - Afr Amer 44 mL/min (>60); Globulin 3.6 g/dL (2.2-4.2); Glucose 136 mg/dL (74-106); Potassium 4.3 mmol/L (3.5-5.1); Protein, Total 7.3 g/dL (6.4-8.2); Sodium Level 142 mmol/L (136-145)
== END | disposition home or self-care (01) ==
LOC: POLAB3 14:00
PROVIDERS: PCP Family Medicine Geriatric Medicine; Visit Provider Family Medicine Geriatric Medicine
DX: R53.83 Other fatigue (principal); E55.9 Vitamin D deficiency, unspecified
CPT/HCPCS: 36415; 80053; 82306; 84443; 85025

== ENCOUNTER → 2024-09-28 | Outpatient (CLI) | payer MEDICARE, SELFPAY ==
--- NOTE | 2024-09-28 16:04 | RAD_ITS ---
PROCEDURE: THORACIC SPINE 3 VIEWS REASON FOR EXAM: Thoracic spine pain for several days. TECHNIQUE: Three-view AP and lateral thoracic spine series COMPARISON: None. RAD/Thoracic Spine 3 Views IMPRESSION: A [id number] degree of thoracolumbar dextroscoliosis is seen, centered ab out the L1 level. A moderate wedge compression fracture, involving the inferior endplate, is seen at an upper thoracic vertebral body. Given the appearance, this most likely is a chronic process, however, although not defini tively so. No subluxation or retropulsed fragment is noted. [id number] degenerative changes of the visualized cervicothoracic spine, most prominent C4-C5, C5-C6, and C6-C7 levels. Reading Location: [id number]
== END | disposition home or self-care (01) ==
PROVIDERS: PCP Family Medicine Geriatric Medicine; Referring Provider Family Medicine Geriatric Medicine; Visit Provider Family Medicine Geriatric Medicine
DX: M54.6 Pain in thoracic spine (principal)
CPT/HCPCS: 72072

== ENCOUNTER → 2025-01-25 | Outpatient (CLI) | payer MEDICARE, SELFPAY ==
[2025-01-25 15:57] LABS: Absolute Lymphocyte Count 0.77 X10^3/uL (0.83-4.51); Absolute Neutrophil Count 3.6 X10^3/uL (2.0-7.7); Basophil# 0.04 X10^3/uL; Basophil% 0.8 % (0-1); Hematocrit 39.1 % (37-47); Hemoglobin 12.5 g/dL (12.0-15.0); Lymphocyte # 0.77 X10^3/ul (0.83-4.51); Lymphocyte % 15.5 % (19-41); Mean Corpuscular Hgb 30.8 pg (27.0-32.0); Mean Corpuscular Volume 96.3 fL (81-99); Mean Platelet Vol. 10.6 fl (6.2-12.0); Monocyte# 0.41 X10^3/uL; Monocyte% 8.2 % (0-10); NRBC Flagged by Analyzer 0 % (0-5); Neutrophil # 3.58 X10^3/uL (2.7-7.7); Neutrophil % 72.1 % (47-70); Platelet Count 167 K/mm3 (150-450); RBC Distribution Width CV 14.6 % (11.6-14.6); RBC Distribution Width SD 51.8 fl (35.1-43.9); Red Blood Count 4.06 M/mm3 (4.2-5.4)
[2025-01-25 16:50] LABS: ALB/GLOB Ratio 1.5 RATIO (0.9-2.4); AST(SGOT) 22 U/L (<=31); Alanine Aminotransfer ALT/SGPT 10 U/L (<=34); Albumin, Serum 4.1 g/dL (3.4-4.8); Alkaline Phosphatase 102 U/L (35-104); Anion Gap 10 (5-15); BUN 15 mg/dL (4-19); BUN/Creat Ratio 13.4 RATIO (10-20); Calcium,Total 9.5 mg/dL (7.6-11.0); Chloride 109 mmol/L (98-108); Creatinine, Serum 1.12 mg/dL (0.70-1.20); EST Glomerular Filtration Rate 48 (>60); Globulin 2.8 g/dL (2.2-4.2); Glucose 90 mg/dL (70-99); Potassium 4.8 mmol/L (3.3-5.1); Protein, Total 6.9 g/dL (5.9-8.4); Sodium Level 141 mmol/L (133-145); Total Bilirubin 0.32 mg/dL (0.00-1.30); Vitamin D,25 Hydroxy 15.5 ng/mL (30-100)
== END | disposition home or self-care (01) ==
LOC: LAB 15:19
PROVIDERS: PCP Family Medicine Geriatric Medicine; Referring Provider Family Medicine Geriatric Medicine; Visit Provider Family Medicine Geriatric Medicine
DX: R53.83 Other fatigue (principal); E55.9 Vitamin D deficiency, unspecified
CPT/HCPCS: 36415; 80053; 82306; 84443; 85025